=== PATIENT | female | born 1945 | race Caucasian/White ===

== ENCOUNTER 2019-10-22 06:00 | Outpatient (CLI) | payer MEDICARE, OTHER, SELFPAY ==
--- NOTE | 2019-10-25 07:07 | ONC FU_ITS ---
Dr. Joseph Patient Follow-Up Note Patient: Carmen Duran Unit #: [id number]: 1945 Dicatated By: Beau Joseph M.D.Date of Visit:Oct 22, 2019 Onc Med Follow-up/Prog Note Chief Complaint: Thrombocytopenia. 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 At that time she was having low-grade fever and polyarthralgia. Her platelet count dropped to as low as 5000. Bone marrow aspiration/biopsy on 03/13/2018 was reportedly normal. 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 She also had slightly elevated RA and HOLLY titers, but she later was seen by a lab tech and it was felt that she did not have inflammatory arthritis. Her thrombocytopenia responded well to steroid therapy, but attempts to taper her off steroid had been unsuccessful. She had been scheduled to start a course of treatment with rituximab, but the first attempt was canceled because her mother became ill and , and the second attempt was canceled because her platelet count at that time was not low enough to justify treatment. I had seen her initially on 11/27/2018. At that time she was taking 20 mg of prednisone daily. She had done some research on her own and she expressed interest in starting treatment with Nplate rather than rituximab. Her platelet count at that time was adequate at 109,000, and initially I had just monitored her blood counts weekly while she continued to taper her prednisone. During subsequent follow-up her platelet count initially increased a little, but on 01/09/2019 it had dropped precipitously to 17,000 compared to 121,000 on 01/01/2019. She reported significant fatigue with the low platelet count, but she had no active bleeding. At that point I attempted to have her start treatment with eltrombopag, but it was denied by her insurance. She then restarted prednisone at 20 mg daily. She had a good response, and the prednisone was subsequently tapered to 5 mg daily. Thus far she has maintained an adequate platelet count at that dosage. She is seen for a follow-up visit. She has numerous complaints. She says her energy is low, but she is still doing light work. Her ECOG score is 1. She has good appetite. She has not had fever. She says she has been having hot flashes off and on during the daytime and at night, and she has sweating with it to the point that she is wringing wet. She says she has had it forever, but recently has been getting worse. She says that at the same time her legs are freezing cold. She does not complain of shortness of breath or cough. She occasionally has sharp pain in her left chest in the area just below her breast. She has some postprandial nausea. She has heartburn and burping. She has had diarrhea, but her bowels lately have been okay. She has no complaints with bladder function. She has sharp pains in her hands and wrists which come and go. She does not complain of headache. She has orthostatic lightheadedness off and on. She has pain and tingling in her legs. She had been getting some benefit with gabapentin, but she had to stop taking it because of severe diarrhea. She tends to bruise easily, but that is not any worse, and she has no other bleeding manifestations. Medications: Acetaminophen 1 (325 mg) Tablet Oral PRN, [place] Dream Arthritis Cream Topical PRN, Devzzmp-Zkstnuulw-Mvhi-D3 1 Tablet Oral daily, EQL [place] 3 Fish Oil 1 (1000 mg) Capsule Oral daily, Levothyroxine Sodium 1 Tablet (of 100 mcg) Oral daily, Multivitamin Adults 1 Tablet Oral daily, Pain Relieving Cream Topical PRN, Potassium 1 (99 mg) Tablet Oral daily, predniSONE 1 Tablet (of 5 mg) Oral daily, Xanax 1 Tablet (of 0.25 mg) Oral at bedtime PRN Allergies: No Known Allergies. Review of Systems: Constitutional - Her energy is low, but she is doing light work. Her appetite is good and her weight is stable. She has not had fever. She has been having fequent hot flashes and sweating. ECOG score is 1, ENMT - She complains that her sinuses are drt. No mouth sores. No sore throat or difficulty swallowing, Hematologic/Lymphatic - She bruises easily, Respiratory - No shortness of breath. No cough or hemoptysis. She occasionally has sharp pain in the area just below the left breast, Cardiovascular - No angina pain. No palpitations, Gastrointestinal - She occasionally has nausea after eating. No vomiting. No heartburn or acid reflux. She complains that she has a lot of burping. She had diarrhea with the gabapentin, but her bowels are okay now. No blood in the stool or black stools, Genitourinary (F) - No dysuria or hematuria. She has episodes of urinary frequency. No urgency or incontinence, Musculoskeletal - She has sharp pains in her joints, Integumentary - No skin complications, Neurologic - No headaches. She has some orthostatic lightheadedness, usually when she first gets up. She has numbness and tingling in her legs and feet. She also complains that her legs feel cold, Psychiatric - No anxiety. She has some depression. She is sleeping better, but she still feels tired all the time. Vital Signs: Performed on Oct 22, 2019 14:19 Height - 63.00 in Weight - 179 lbs (HIGH) BSA - 1.84 sq.m BMI - 31.71 (HIGH) Temperature - 96.6 F (LOW) Pulse - 60 /min Respiration - 18 /min BP - 122/79 mm(hg) O2 Sat - 97 % Pain - 0 Physical Examination: Constitutional - She looks pretty good generally, Eyes - Sclerae nonicteric. Conjunctivae clear, ENMT - No lesions noted in the oral cavity, Hematologic/Lymphatic - No cervical, clavicular, or axillary adenopathy, Respiratory - Lungs are clear with good air movement bilaterally, Cardiovascular - Heart rhythm is regular. There is no murmur, gallop, or rub noted, Abdomen - Soft. Liver and spleen are not enlarged. There is no abdominal mass or ascites noted and there is no inguinal adenopathy, Extremities - No edema. She has good dorsalis pedis pulses bilaterally. There are a few scattered purpuric lesions on the arms and hands, Neurologic - No focal neurologic deficits noted. Lab/Imaging: Test performed on Oct 15, 2019 09:20 T4, Free 1.76 ng/dL TSH 0.97 uU/mL Glucose 93 mg/dL Protein, Total 6.5 g/dL Albumin, SPE 4.19 g/dL BUN 16 mg/dL Creatinine 1.04 mg/dL Cr Clearance (Est) 60.37 mL/min Sodium 141 mmol/L Potassium 4.3 mmol/L Chloride 102 mmol/L CO2 28 mmol/L Calcium 9.1 mg/dL Albumin 4.3 g/dL Bilirubin, Total 0.6 mg/dL Alkaline Phosphatase 75 IU/L AST (SGOT) 27 IU/L ALT (SGPT) 26 IU/L Sed Rate 12 mm/hr WBC 7.2 10^9/L RBC 4.78 10^12/L HGB 15.5 g/dL HCT 45.0 % MCV 94.1 fl MCH 32.4 pg MCHC 34.4 g/dL RDW 12.8 % Platelet Count 82 10^9/L MPV 12.8 fL Neutrophils (Gran) 5.50 10^9/L Lymphocytes 1.02 10^9/L Monocytes 0.47 10^9/L Eosinophils 0.14 10^9/L Basophils 0.02 10^9/L Manual Lymphocytes 14 % Manual Monocytes 7 % Manual Eosinophils 2 % Manual Basophils 0 % Inbxt-2-adftodfs 0.20 g/dL Ttvjt-9-ybbwffus 0.69 g/dL Beta Globulin 0.63 g/dL Gamma Globulin 0.80 g/dL SPE Interpretation essentially normal electrophoretic pattern. Impression: 1. Patient with autoimmune thrombocytopenia, initially diagnosed in March 2018. 2. Her disease had been responsive to steroid therapy, but she had failed attempts to taper steroid therapy. 3. She previously had a mild microcytic anemia, possibly due to iron deficiency. Her other medical illnesses include: 4. Osteoarthritis. 5. Hypothyroidism. 6. She has anxiety/depression. Following my initial visit with her on 11/27/2018 she had continued to gradually taper her prednisone. Her blood counts were monitored weekly and initially her platelet count remained adequate. However, on 01/09/2019 it precipitously dropped to 17,000. She had significant fatigue with the low platelet count, but no active bleeding. She restarted prednisone at 20 mg daily after her insurance denied her coverage for eltrombopag. She had a good response, and she subsequently was able to taper the prednisone dosage to 5 mg daily. During subsequent follow-up her platelet count has remained adequate on the low-dose of prednisone. During this time she has continued to have a variety of complaints. Among these are fatigue and significant neuropathy symptoms in the lower extremities. She also now reports having more frequent and more severe hot flashes and sweating. There has been some decline in her platelet count over the past month, but it is still adequate. Plan: She will continue her prednisone 5 mg daily. Her blood count will be rechecked monthly. If her platelet count continues to decline, the prednisone dosage will be increased. I will see her again in 3 months. Signed By: Beau Joseph M.D. <<Signature on File>>
== END 2019-10-22 06:01 | disposition home or self-care (01) ==
LOC: ONCMED 14:20
PROVIDERS: Family Provider Family Medicine; PCP Family Medicine; Visit Provider Internal Medicine Medical Oncology
DX: D69.3 Immune thrombocytopenic purpura (principal); M19.90 Unspecified osteoarthritis, unspecified site; E03.9 Hypothyroidism, unspecified; F41.8 Other specified anxiety disorders; Z79.52 Long term (current) use of systemic steroids; Z79.899 Other long term (current) drug therapy
CPT/HCPCS: 99214

== ENCOUNTER 2020-01-21 13:08 | Outpatient (CLI) | payer MEDICARE, OTHER, SELFPAY ==
--- NOTE | 2020-01-25 14:47 | ONC FU_ITS ---
Dr. Joseph Patient Follow-Up Note Patient: Carmen Duran Unit #: [id number]: 1945 Dicatated By: Beau Joseph M.D.Date of Visit:January 21, 2020 Onc Med Follow-up/Prog Note Chief Complaint: Thrombocytopenia. 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 At that time she was having low-grade fever and polyarthralgia. Her platelet count dropped to as low as 5000. Bone marrow aspiration/biopsy on 03/13/2018 was reportedly normal. 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 She also had slightly elevated RA and HOLLY titers, but she later was seen by a heavy equipment rental manager and it was felt that she did not have inflammatory arthritis. Her thrombocytopenia responded well to steroid therapy, but attempts to taper her off steroid had been unsuccessful. She had been scheduled to start a course of treatment with rituximab, but the first attempt was canceled because her mother became ill and , and the second attempt was canceled because her platelet count at that time was not low enough to justify treatment. I had seen her initially on 11/27/2018. At that time she was taking 20 mg of prednisone daily. She had done some research on her own and she expressed interest in starting treatment with Nplate rather than rituximab. Her platelet count at that time was adequate at 109,000, and initially I had just monitored her blood counts weekly while she continued to taper her prednisone. During subsequent follow-up her platelet count initially increased a little, but on 01/09/2019 it had dropped precipitously to 17,000 compared to 121,000 on 01/01/2019. She reported significant fatigue with the low platelet count, but she had no active bleeding. At that point I attempted to have her start treatment with eltrombopag, but it was denied by her insurance. She then restarted prednisone at 20 mg daily. She had a good response, and the prednisone was subsequently tapered to 5 mg daily. As of her follow-up visit in October 2019 she had maintained an adequate platelet count at that dosage. She is seen for a follow-up visit. Subsequent to her visit in October she had reduced her prednisone dosage to 1 mg daily, mainly because she had been gaining weight. Since then she has been also on a keto diet, and her weight has dropped from 192 to 170 pounds. However, during that time her platelet count had declined significantly, and she is now back on 5 mg daily. She says her energy is better than it was, but she still has somewhat limited activity tolerance. ECOG score is 1. She has not had fever. She does report having some hot flashes and sweating. Her neuropathy is still awful, particularly in the nighttime. She is adjusting her carbamazepine dosage to try and help with that. She reports having some little sores in her mouth, but she has had no abnormal bruising or bleeding. She continues to have joint pain. She also reports having a bit of headache every morning. She has some dizziness and some nausea, which she thinks is medication related. She says her depression has been pretty bad. Medications: Acetaminophen 1 (325 mg) Tablet Oral PRN, [place] Dream Arthritis Cream Topical PRN, Rfgmdih-Xusouyejf-Vkad-D3 1 Tablet Oral daily, EQL [place] 3 Fish Oil 1 (1000 mg) Capsule Oral daily, Levothyroxine Sodium 1 Tablet (of 100 mcg) Oral daily, Multivitamin Adults 1 Tablet Oral daily, Pain Relieving Cream Topical PRN, Potassium 1 (99 mg) Tablet Oral daily, predniSONE 1 Tablet (of 5 mg) Oral daily, Xanax 1 Tablet (of 0.25 mg) Oral at bedtime PRN Allergies: No Known Allergies. Review of Systems: Constitutional - She general feels okay. Her energy is fair. She has fairly normal activity. Her appetite is okay and weight is down 12 pounds. No fever or chills. She is having hot flashes with sweating. ECOG score is 1, ENMT - No sinus congestion/drainage. She has started gets mouth sores when eating acidic foods. No sore throat or difficulty swallowing, Hematologic/Lymphatic - No abnormal bruising or bleeding, Respiratory - No shortness of breath. No cough. No pleuritic pain or hemoptysis, Cardiovascular - No angina pain. No palpitations, Gastrointestinal - No nausea or vomiting. No heartburn or acid reflux. No diarrhea or constipation. No blood in the stool or black stools, Genitourinary (F) - No dysuria or hematuria. No urinary frequency. No urgency or incontinence, Musculoskeletal - She has joint pain, Integumentary - No skin complications, Neurologic - She has headaches nearly every morning. No dizziness. She continues having significant neuropathy in her legs and feet, Psychiatric - She has anxiety and depression. No insomnia. Vital Signs: Performed on January 21, 2020 13:08 Height - 63.00 in Weight - 172 lbs (LOW) BSA - 1.81 sq.m BMI - 30.47 (HIGH) Temperature - 97.1 F (LOW) Pulse - 67 /min Respiration - 16 /min BP - 110/60 mm(hg) O2 Sat - 97 % Pain - 5 Physical Examination: Constitutional - She looks pretty good generally, Eyes - Sclerae nonicteric. Conjunctivae clear, ENMT - No lesions noted in the oral cavity. TMs appear unremarkable, Hematologic/Lymphatic - No cervical, clavicular, or axillary adenopathy, Respiratory - Lungs are clear with good air movement bilaterally, Cardiovascular - Heart rhythm is regular. There is no murmur, gallop, or rub noted, Abdomen - Soft. Liver and spleen are not enlarged. There is no abdominal mass or ascites noted and there is no inguinal adenopathy, Extremities - No edema. Pedal pulses are palpable bilaterally, Integumentary - There are no petechiae noted, Neurologic - No focal neurologic deficits noted. Lab/Imaging: Test performed on January 13, 2020 10:20 WBC 5.3 10^9/L RBC 4.17 10^12/L HGB 13.9 g/dL HCT 41.2 % MCV 98.8 fl MCH 33.3 pg MCHC 33.7 g/dL RDW 13.6 % Platelet Count 55 10^9/L MPV 12.5 fL Neutrophils (Gran) 3.84 10^9/L Lymphocytes 0.53 10^9/L Monocytes 0.583 10^9/L Eosinophils 0.265 10^9/L Basophils 0.053 10^9/L Impression: 1. Patient with autoimmune thrombocytopenia, initially diagnosed in March 2018. 2. Her disease had been responsive to steroid therapy, but she had failed attempts to taper steroid therapy. 3. She previously had a mild microcytic anemia, possibly due to iron deficiency. Her other medical illnesses include: 4. Osteoarthritis. 5. Hypothyroidism. 6. She has anxiety/depression. Following my initial visit with her on 11/27/2018 she had continued to gradually taper her prednisone. Her blood counts were monitored weekly and initially her platelet count remained adequate. However, on 01/09/2019 it precipitously dropped to 17,000. She had significant fatigue with the low platelet count, but no active bleeding. She restarted prednisone at 20 mg daily after her insurance denied her coverage for eltrombopag. She had a good response, and she subsequently was able to taper the prednisone dosage to 5 mg daily. During subsequent follow-up her platelet count has remained adequate on the low-dose of prednisone. During this time she has continued to have a variety of complaints. The most significant have been fatigue and neuropathy symptoms in the lower extremities. As of her follow-up visit in October 2019 her platelet count had remained adequate on prednisone at the 5 mg dosage. Subsequent to that visit she had decreased her prednisone dosage to 1 mg daily, mainly because of weight gain. With the keto diet and with the lower dose of prednisone, she was able to lose weight. However, there has been a significant decline in her platelet count, now to 55,000. She does not appear to be symptomatic with it, but she has now increased the prednisone dosage back up to 5 mg daily. Plan: She will continue prednisone at 5 mg daily. Her blood count will be rechecked monthly. I will see her again in 3 months, or sooner as needed. Signed By: Beau Joseph M.D. <<Signature on File>>
== END 2020-01-21 13:09 | disposition home or self-care (01) ==
LOC: ONCMED 13:08
PROVIDERS: PCP Family Medicine; Visit Provider Internal Medicine Medical Oncology
DX: D69.3 Immune thrombocytopenic purpura (principal); M19.90 Unspecified osteoarthritis, unspecified site; E03.9 Hypothyroidism, unspecified; F41.8 Other specified anxiety disorders; G57.93 Unspecified mononeuropathy of bilateral lower limbs; R53.83 Other fatigue; Z79.52 Long term (current) use of systemic steroids
CPT/HCPCS: 99214

== ENCOUNTER 2020-04-21 10:32 | Outpatient (CLI) | payer MEDICARE, OTHER, SELFPAY ==
--- NOTE | 2020-04-27 16:11 | ONC FU_ITS ---
Dr. Joseph Patient Follow-Up Note Patient: Carmen Duran Unit #: [id number]: 1945 Dicatated By: Beau Joseph M.D.Date of Visit:Apr 21, 2020 Onc Med Follow-up/Prog Note Chief Complaint: Thrombocytopenia. 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 At that time she was having low-grade fever and polyarthralgia. Her platelet count dropped to as low as 5000. Bone marrow aspiration/biopsy on 03/13/2018 was reportedly normal. 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 She also had slightly elevated RA and HOLLY titers, but she later was seen by a treasury specialist and it was felt that she did not have inflammatory arthritis. Her thrombocytopenia responded well to steroid therapy, but attempts to taper her off steroid had been unsuccessful. She had been scheduled to start a course of treatment with rituximab, but the first attempt was canceled because her mother became ill and , and the second attempt was canceled because her platelet count at that time was not low enough to justify treatment. I had seen her initially on 11/27/2018. At that time she was taking 20 mg of prednisone daily. She had done some research on her own and she expressed interest in starting treatment with Nplate rather than rituximab. Her platelet count at that time was adequate at 109,000, and initially I had just monitored her blood counts weekly while she continued to taper her prednisone. During subsequent follow-up her platelet count initially increased a little, but on 01/09/2019 it had dropped precipitously to 17,000 compared to 121,000 on 01/01/2019. She reported significant fatigue with the low platelet count, but she had no active bleeding. At that point I attempted to have her start treatment with eltrombopag, but it was denied by her insurance. She then restarted prednisone at 20 mg daily. She had a good response, and the prednisone was subsequently tapered to 5 mg daily. As of her follow-up visit in October 2019 she had maintained an adequate platelet count at that dosage. However, subsequent to her visit in October she had reduced her prednisone dosage to 1 mg daily, mainly because she had been gaining weight. She had also started on a keto diet, and her weight dropped from 192 to 170 pounds. During that time her platelet count had declined significantly, and she then increased the prednisone dosage back to 5 mg daily. As of February 2020 the platelet count was back up to 160,000, and she continued the prednisone at 5 mg daily. She is seen for a scheduled visit. She has remained on prednisone 5 mg daily. She also has continued on her keto diet, and she has had further weight loss. Her energy is somewhat variable, but she is doing light work. ECOG score is 1. She has not had fever. She has some sweating, but she has says it is not so bad now. She does report having little bumps in her mouth and she has sore throat, which comes and goes. She does not complain of shortness of breath or cough. She sometimes has pain in the area of her lower left rib cage/left upper quadrant. She has no other GI or complaints. She reports having cysts on her left wrist and left elbow. She has no significant joint or bone pain. She occasionally has headache at night, and she sometimes has dizziness. She feels that her neuropathy has improved with the keto diet. Medications: Acetaminophen 1 (325 mg) Tablet Oral PRN, French Dream Arthritis Cream Topical PRN, Llumwwk-Zkeuvgxur-Memj-D3 1 Tablet Oral daily, EQL [place] 3 Fish Oil 1 (1000 mg) Capsule Oral daily, Levothyroxine Sodium 1 Tablet (of 100 mcg) Oral daily, Multivitamin Adults 1 Tablet Oral daily, Pain Relieving Cream Topical PRN, predniSONE 1 Tablet (of 5 mg) Oral daily, Xanax 1 Tablet (of 0.25 mg) Oral at bedtime PRN Allergies: No Known Allergies. Review of Systems: Constitutional - She has been feeling much better since stopping her carbamazepine. Her energy seems to come and go. She is able to do light to moderate work. Her appetite is fair. Her weight is down 16 pounds intentionally from last visit. She has been on a keto diet. No fevers. She has night sweats, but they are not so bad now. ECOG score is 1, ENMT - No sinus congestion/drainage. She has a few mouth sores. No sore throat or difficulty swallowing, Hematologic/Lymphatic - She has no abnormal bruising or bleeing, Respiratory - No shortness of breath. No cough. No pleuritic pain or hemoptysis, Cardiovascular - No angina pain. No palpitations, Gastrointestinal - No nausea or vomiting. No heartburn or acid reflux. No diarrhea or constipation. No blood in the stool or black stools, Genitourinary (F) - No dysuria or hematuria. No urinary frequency. No urgency or incontinence, Musculoskeletal - She has had intermittent pain near her left rib area. She says it feels like heartburn at times. She has some pain in the left wrist and left elbow, Integumentary - No skin complications, Neurologic - She has occasional headaches at night. She has some dizziness. She continues having significant neuropathy in her legs and feet, but it seems to be better. No other focal neurologic symptoms, Psychiatric - She has intermittent anxiety. No depression. She has occasional insomnia. Vital Signs: Performed on Apr 21, 2020 10:31 Height - 63.00 in Weight - 156 lbs (LOW) BSA - 1.74 sq.m BMI - 27.63 Temperature - 98.6 F Pulse - 61 /min Respiration - 17 /min BP - 110/70 mm(hg) O2 Sat - 96 % Pain - 0 Physical Examination: Constitutional - She looks pretty good generally, Eyes - Sclerae nonicteric. Conjunctivae clear, ENMT - No lesions noted in the oral cavity, Hematologic/Lymphatic - No cervical, clavicular, or axillary adenopathy, Respiratory - Lungs are clear with good air movement bilaterally, Cardiovascular - Heart rhythm is regular. There is no murmur, gallop, or rub noted, Abdomen - Soft. Liver and spleen are not enlarged. There is no abdominal mass or ascites noted and there is no inguinal adenopathy, Extremities - No edema. There appears to be some mild soft tissue swelling in the left antecubital fossa, Neurologic - No focal neurologic deficits noted. Lab/Imaging: Test performed on Apr 15, 2020 13:22 Cholesterol, Total 292 mg/dL Glucose 102 mg/dL Albumin, SPE 4.19 g/dL BUN 24 mg/dL HDL Cholesterol 107 mg/dL Creatinine 0.98 mg/dL LDL Cholesterol 167 mg/dL Cr Clearance (Est) 64.07 mL/min VLDL Cholesterol 185 mg/dL Triglycerides 88 mg/dL Sodium 139 mmol/L Potassium 4.6 mmol/L Chloride 103 mmol/L CO2 24 mmol/L Calcium 9.2 mg/dL Protein, Total 6.3 g/dL Albumin 4.3 g/dL Bilirubin, Total 0.6 mg/dL Alkaline Phosphatase 67 IU/L AST (SGOT) 26 IU/L ALT (SGPT) 20 IU/L WBC 7.4 10^9/L RBC 4.20 10^12/L HGB 14.3 g/dL HCT 42.5 % MCV 101.4 fl MCH 34.1 pg MCHC 33.6 g/dL RDW 12.8 % Platelet Count 166 10^9/L MPV 11.2 fL Neutrophils (Gran) 5.99 10^9/L Lymphocytes 0.82 10^9/L Monocytes 0.42 10^9/L Eosinophils 0.09 10^9/L Basophils 0.03 10^9/L Manual Lymphocytes 11 % Manual Monocytes 6 % Manual Eosinophils 1 % Manual Basophils 0 % Yvinl-9-hbgnvemk 0.20 g/dL Idtpm-3-zmayemzu 0.69 g/dL Beta Globulin 0.63 g/dL Gamma Globulin 0.80 g/dL Impression: 1. Patient with autoimmune thrombocytopenia, initially diagnosed in March 2018. 2. Her disease had been responsive to steroid therapy, but she had failed attempts to taper steroid therapy. 3. She previously had a mild microcytic anemia, possibly due to iron deficiency. Her other medical illnesses include: 4. Osteoarthritis. 5. Hypothyroidism. 6. She has anxiety/depression. Following my initial visit with her on 11/27/2018 she had continued to gradually taper her prednisone. Her blood counts were monitored weekly and initially her platelet count remained adequate. However, on 01/09/2019 it precipitously dropped to 17,000. She had significant fatigue with the low platelet count, but no active bleeding. She restarted prednisone at 20 mg daily after her insurance denied her coverage for eltrombopag. She had a good response, and she subsequently was able to taper the prednisone dosage to 5 mg daily. During subsequent follow-up her platelet count has remained adequate on the low-dose of prednisone. During this time she has continued to have a variety of complaints. The most significant have been fatigue and neuropathy symptoms in the lower extremities. As of her follow-up visit in October 2019 her platelet count had remained adequate on prednisone at the 5 mg dosage. Subsequent to that visit she had decreased her prednisone dosage to 1 mg daily, mainly because of weight gain. She had subsequently increase the prednisone back up to 5 mg daily. She also then started on a keto diet. She has since then been feeling better generally. She has had significant weight loss. Her platelet count has come up to normal range and stabilized. Plan: She will continue prednisone at 5 mg daily. She will be scheduled for repeat blood count in 6 weeks and for a follow-up visit in 3 months. In the meantime, due to her long-term prednisone therapy, she will be scheduled for a DEXA scan. Signed By: Beau Joseph M.D. <<Signature on File>>
== END 2020-04-21 10:33 | disposition home or self-care (01) ==
LOC: ONCMED 10:32
PROVIDERS: PCP Family Medicine; Visit Provider Internal Medicine Medical Oncology
DX: D69.3 Immune thrombocytopenic purpura (principal); M19.90 Unspecified osteoarthritis, unspecified site; E03.9 Hypothyroidism, unspecified; F41.8 Other specified anxiety disorders; Z79.52 Long term (current) use of systemic steroids
CPT/HCPCS: 99214

== ENCOUNTER 2020-07-21 10:19 | Outpatient (CLI) | payer MEDICARE, OTHER, SELFPAY ==
--- NOTE | 2020-07-24 07:00 | ONC FU_ITS ---
Dr. Joseph Patient Follow-Up Note Patient: Carmen Duran Unit #: [id number]: 1945 Dicatated By: Beau Joseph M.D.Date of Visit:Jul 21, 2020 Onc Med Follow-up/Prog Note Chief Complaint: Thrombocytopenia. 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 At that time she was having low-grade fever and polyarthralgia. Her platelet count dropped to as low as 5000. Bone marrow aspiration/biopsy on 03/13/2018 was reportedly normal. 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 She also had slightly elevated RA and HOLLY titers, but she later was seen by a oil gas and pipe tester and it was felt that she did not have inflammatory arthritis. Her thrombocytopenia responded well to steroid therapy, but attempts to taper her off steroid had been unsuccessful. She had been scheduled to start a course of treatment with rituximab, but the first attempt was canceled because her mother became ill and , and the second attempt was canceled because her platelet count at that time was not low enough to justify treatment. I had seen her initially on 11/27/2018. At that time she was taking 20 mg of prednisone daily. She had done some research on her own and she expressed interest in starting treatment with Nplate rather than rituximab. Her platelet count at that time was adequate at 109,000, and initially I had just monitored her blood counts weekly while she continued to taper her prednisone. During subsequent follow-up her platelet count initially increased a little, but on 01/09/2019 it had dropped precipitously to 17,000 compared to 121,000 on 01/01/2019. She reported significant fatigue with the low platelet count, but she had no active bleeding. At that point I attempted to have her start treatment with eltrombopag, but it was denied by her insurance. She then restarted prednisone at 20 mg daily. She had a good response, and the prednisone was subsequently tapered to 5 mg daily. As of her follow-up visit in October 2019 she had maintained an adequate platelet count at that dosage. However, subsequent to her visit in October she had reduced her prednisone dosage to 1 mg daily, mainly because she had been gaining weight. She had also started on a keto diet, and her weight dropped from 192 to 170 pounds. During that time her platelet count had declined significantly, and she then increased the prednisone dosage back to 5 mg daily. As of February 2020 the platelet count was back up to 160,000, and she continued the prednisone at 5 mg daily. She is seen for a scheduled visit. She has been feeling pretty good generally. Among other things, she has is feeling a lot more positive about things. Overall, she has felt much better since she went on the keto diet. Her weight recently has been stable. She has good energy and she has normal activity. She has not had fever. She says she has hot flashes every day, and she also has night sweating. She has no shortness of breath, cough, or chest pain. She has no GI or complaints. She does complain that her joints are achy, particularly the hips, and the left worse than the right. Her neuropathy is about the same. She is having only mild bruising now. Medications: Acetaminophen 1 (325 mg) Tablet Oral PRN, Belgian Dream Arthritis Cream Topical PRN, Nuiqgxe-Rygkrykhk-Lhnt-D3 1 Tablet Oral daily, EQL [place] 3 Fish Oil 1 (1000 mg) Capsule Oral daily, Levothyroxine Sodium 1 Tablet (of 100 mcg) Oral daily, Multivitamin Adults 1 Tablet Oral daily, Pain Relieving Cream Topical PRN, predniSONE 1 Tablet (of 5 mg) Oral daily, Xanax 1 Tablet (of 0.25 mg) Oral at bedtime PRN Allergies: No Known Allergies. Review of Systems: Constitutional - She has been feeling better generally. She has good energy and activity tolerance. Her appetite is good. She is still on the keto diet. She has not had fever. She does have hot flashes every day and she also gets hot with sweating at night. ECOG score is 0, ENMT - She complains of having a drippy nose. No mouth sores. No sore throat or difficulty swallowing, Hematologic/Lymphatic - She has some minor bruising, Respiratory - No shortness of breath. No cough. No pleuritic pain or hemoptysis, Cardiovascular - No angina pain. No palpitations, Gastrointestinal - No nausea or vomiting. No heartburn or acid reflux. No diarrhea or constipation. No blood in the stool or black stools, Genitourinary (F) - No dysuria or hematuria. No urinary frequency. No urgency or incontinence, Musculoskeletal - She has joint pain, especially in the hips, and more on the left than the right, Integumentary - No skin rash, Neurologic - No headache. She sometimes has dizziness. Her neuropathy is about the same, Psychiatric - She is not having as much stress now. She still sometimes has difficulty sleeping. Vital Signs: Performed on Jul 21, 2020 10:40 Height - 63.00 in Weight - 155.6 lbs (LOW) BSA - 1.74 sq.m BMI - 27.56 Temperature - 97.6 F (LOW) Pulse - 59 /min (LOW) Respiration - 16 /min BP - 116/60 mm(hg) O2 Sat - 99 % Pain - 3 Physical Examination: Constitutional - She looks good generally, Eyes - Sclerae nonicteric. Conjunctivae clear, ENMT - No lesions noted in the oral cavity, Hematologic/Lymphatic - No cervical, clavicular, or axillary adenopathy, Respiratory - Lungs are clear with good air movement bilaterally, Cardiovascular - Heart rhythm is regular. There is no murmur, gallop, or rub noted, Abdomen - Soft. Liver and spleen are not enlarged. There is no abdominal mass or ascites noted and there is no inguinal adenopathy, Extremities - No edema. She has small purpuric lesions on the forearms and hands, Neurologic - No focal neurologic deficits noted. Lab/Imaging: CBC shows hemoglobin 14.8 g, white blood cell count 6200, and platelet count 202,000. Impression: 1. Patient with autoimmune thrombocytopenia, initially diagnosed in March 2018. 2. Her disease had been responsive to steroid therapy, but she had failed attempts to taper steroid therapy. 3. She previously had a mild microcytic anemia, possibly due to iron deficiency. Her other medical illnesses include: 4. Osteoarthritis. 5. Hypothyroidism. 6. She has anxiety/depression. Following my initial visit with her on 11/27/2018 she had continued to gradually taper her prednisone. Her blood counts were monitored weekly and initially her platelet count remained adequate. However, on 01/09/2019 it precipitously dropped to 17,000. She had significant fatigue with the low platelet count, but no active bleeding. She restarted prednisone at 20 mg daily after her insurance denied her coverage for eltrombopag. She had a good response, and she subsequently was able to taper the prednisone dosage to 5 mg daily. During subsequent follow-up her platelet count has remained adequate on the low-dose of prednisone. During this time she has continued to have a variety of complaints. The most significant have been fatigue and neuropathy symptoms in the lower extremities. As of her follow-up visit in October 2019 her platelet count had remained adequate on prednisone at the 5 mg dosage. She had then had decreased her prednisone dosage to 1 mg daily, mainly because of weight gain. However, the prednisone was subsequently increased back up to 5 mg daily due to a significant decrease in the platelet count. At that point she had also started on a keto diet. She has since then been feeling better generally, and her platelet count has stabilized in normal range. Plan: She will continue prednisone at 5 mg daily. She will be scheduled for a follow-up visit in 3 months. Signed By: Beau Joseph M.D. <<Signature on File>>
== END 2020-07-21 10:20 | disposition home or self-care (01) ==
LOC: ONCMED 10:19
PROVIDERS: PCP Family Medicine; Visit Provider Internal Medicine Medical Oncology
DX: D69.3 Immune thrombocytopenic purpura (principal); M19.90 Unspecified osteoarthritis, unspecified site; E03.9 Hypothyroidism, unspecified; F41.8 Other specified anxiety disorders; Z79.52 Long term (current) use of systemic steroids
CPT/HCPCS: 99214

== ENCOUNTER 2020-11-03 14:46 | Outpatient (CLI) | payer MEDICARE, OTHER, SELFPAY | END 2020-11-03 14:47 | disposition home or self-care (01) | LOC: SPT 14:47 | PROVIDERS: PCP Family Medicine; Visit Provider Orthopaedic Surgery | DX: Z46.89 Encounter for fitting and adjustment of other specified devices (principal); S52.591D Other fractures of lower end of right radius, subsequent encounter for closed fracture with routine healing; X58.XXXD Exposure to other specified factors, subsequent encounter | CPT/HCPCS: 97760; L3982 ==

== ENCOUNTER → 2020-11-11 08:32 | Outpatient (BNVA) | payer MEDICARE, OTHER, SELFPAY | PROVIDERS: PCP Family Medicine; Visit Provider Orthopaedic Surgery | DX: S52.501A Unspecified fracture of the lower end of right radius, initial encounter for closed fracture (principal); X58.XXXA Exposure to other specified factors, initial encounter | CPT/HCPCS: 73110 ==

== ENCOUNTER → 2020-11-25 14:17 | Outpatient (BNVA) | payer MEDICARE, OTHER, SELFPAY | PROVIDERS: PCP Family Medicine; Visit Provider Orthopaedic Surgery | DX: S52.501A Unspecified fracture of the lower end of right radius, initial encounter for closed fracture (principal); M25.521 Pain in right elbow; X58.XXXA Exposure to other specified factors, initial encounter | CPT/HCPCS: 73080; 73110 ==

== ENCOUNTER → 2020-12-22 08:55 | Outpatient (BNVA) | payer MEDICARE, OTHER, SELFPAY | PROVIDERS: PCP Family Medicine; Visit Provider Orthopaedic Surgery | DX: S52.501A Unspecified fracture of the lower end of right radius, initial encounter for closed fracture (principal); X58.XXXA Exposure to other specified factors, initial encounter | CPT/HCPCS: 73110 ==

== ENCOUNTER → 2021-07-12 09:39 | Outpatient (BNVA) | payer MEDICARE, OTHER, SELFPAY | PROVIDERS: PCP Family Medicine; Visit Provider Internal Medicine | DX: E03.9 Hypothyroidism, unspecified (principal); G62.9 Polyneuropathy, unspecified; E07.9 Disorder of thyroid, unspecified; D69.3 Immune thrombocytopenic purpura | CPT/HCPCS: 99204 ==

== ENCOUNTER 2021-10-30 17:04 | Inpatient (IN) | payer MEDICARE, OTHER, SELFPAY ==
[2021-10-30] VITALS (8 sets, daily range): BP systolic 120–168; BP diastolic 75–110; PULSE 77–93; RESP 16–22; TEMP 36.7–36.8; O2SAT 95–99; BMI 29.2; BMI 29.0
--- NOTE | 2021-10-30 17:06 | XRR_ITS ---
PROCEDURE INFORMATION: Exam: XR Left Hip Exam date and time: 10/30/2021 5:06 PM Age: 76 years old Clinical indication: Pain and injury or trauma; Fall; Blunt trauma (contusions or hematomas); Hip pain; Left hip; Additional info: Pain/fall TECHNIQUE: Imaging protocol: XR Left hip. Views: 2 or 3 views hip with pelvis when performed. COMPARISON: No relevant prior studies available. FINDINGS: Bones/joints: Subcapital impacted displaced hip fracture. Soft tissues: Unremarkable. XR/XR hip LT 2-3V wo/w pel* [id number] IMPRESSION: Subcapital impacted displaced hip fracture.
--- NOTE | 2021-10-30 17:06 | W.ED.FALL ---
HPI - Fall General: Chief Complaint: Fall Stated Complaint: LEFT HIP PAIN S/P FALL Time Seen by Provider: 10/30/21 17:05 Source: patient Mode of arrival: EMS Limitations: no limitations History of Present Illness: 76-year-old female slipped on the ice and fell on her left side is unable to move her left hip. Did not strike her head did not lose consciousness. She has no other injuries. She does states she has a history of ITP. She also has some back issues she recently had an MRI at an outside facility believe it was [facility]. She denies any new or worsening back pain. MD complaint: fall Onset (ago): minute(s) Fall from: standing Place fall occurred: home Loss of consciousness: None Prolonged down time: no Symptoms prior to fall: none Context: tripped/slipped Location of injury - extremities: Left: thigh (Hip) Associated symptoms-after fall: Denies abdominal pain, chest pain, confusion, difficulty walking, headache(s), hematuria, lightheadedness, neck pain, numbness, short of breath, vertigo or weakness Review of Systems Const: Denies: fever(s), chills, body aches, change in appetite, fatigue or malaise ENMT: Denies: throat pain, ear or mastoid pain, nasal discharge or nasal congestion Card: Denies: chest pain or lightheadedness Resp: Denies: dyspnea, productive cough or non-productive cough GI: Denies: abdominal pain : Denies: hematuria Musc: Reports: extremity pain (Left hip); Denies: neck pain Skin/Breast: Denies: rash or pruritus Neuro: Denies: headache(s), difficulty walking, vertigo or confusion PFSH ED PFSH: Medical History Cataract Chronic ITP (idiopathic thrombocytopenia) Hypothyroidism Neuropathy Skin cancer Surgical History No pertinent past surgical history Family History Father No problems noted. Mother Alzheimer's dementia Social History Smoking and tobacco status: never smoked Second hand smoke exposure: No Smoking risk assessment/counseling performed?: No Alcohol intake: current Alcohol intake frequency: holidays/special occasions only Desire information about alcohol rehabilitation?: No Counseling given: No Desire information about substance/drug rehabilitation?: No Counseling given: No Adopted: No Caregiver/support person: No Lives independently: Yes Household members: spouse and family Housing: House Marital status: Highest education level completed: Some College, No Degree service: No Current occupational status: retired History of recent travel: No Sexually active: No Current gender identity: Female Agree to transfusion: Yes Physical Exam Const: COMMON NORMALS: no acute distress GENERAL APPEARANCE: cooperative and comfortable ORIENTATION/CONSCIOUSNESS: Yes awake, Yes oriented to person, Yes oriented to place and Yes oriented to time HENMT: COMMON NORMALS: normocephalic, atraumatic and hearing grossly normal bilaterally HEAD & SCALP: normocephalic and atraumatic Neck/C-Spine: COMMON NORMALS: no JVD Resp: COMMON NORMALS: normal respiratory effort, No retractions, No use of accessory muscles and clear to auscultation bilaterally AUSCULTATION: clear to auscultation bilaterally Cardio: COMMON NORMALS: no JVD, regular rate, regular rhythm and No murmurs present (Cardio) RATE: regular rate RHYTHM: regular rhythm GI: COMMON NORMALS: Soft to palpation and No hepatosplenomegaly present AUSCULTATION: Yes normoactive bowel sounds PALPATION: Yes Soft to palpation, No Tenderness to palpation present (GI), No Guarding due to palpation present (GI) and Yes No hepatosplenomegaly present Extremity: OTHER: Mild external rotation of the left hip. Pulses normal neurovascularly intact Neuro: SENSORIUM/ORIENTATION: Yes oriented to person, Yes oriented to place and Yes oriented to time Skin: COMMON NORMALS: no rashes or lesions noted GENERAL SKIN EXAM: no rashes or lesions noted Course Vital Signs: Vital signs: Vital Signs Temperature 98.3 F 10/30/21 17:09 Pulse Rate 93 10/30/21 17:09 Respiratory Rate 20 H 10/30/21 17:22 Blood Pressure 165/110 10/30/21 17:09 Pulse Oximetry 96 10/30/21 17:09 MDM - Fall Medical Decision Making Left subcapital hip fracture minimal displacement. Discussed with hospitalist they will admit consult Ortho preoperative labs done. Medical Records I reviewed the patient's medical records. Lab Data I reviewed the patient's lab results. : 10/30/21 18:05 10/30/21 18:05 Discharge Plan Discharge Patient Disposition: Admitted As Inpatient Clinical Impression: Closed subcapital fracture of left femur, Hypothyroidism, Chronic ITP (idiopathic thrombocytopenia) Condition: Stable Prescriptions: No Action prednisone 5 mg tablet 5 mg PO DAILY 0RF levothyroxine [Euthyrox] 100 mcg tablet 100 mcg PO DAILY 0RF alprazolam 0.5 mg tablet 0.5 mg PO DAILY PRN (Reason: Anxiety) 0RF (DME) Fast Form cock up splint See Rx Instructions .ROUTE .MEDSUPPLY Qty: 1 0RF Rx Instructions: As directed acetaminophen 325 mg capsule 325 mg PO QID PRN (Reason: Pain) 0RF amitriptyline 25 mg tablet 25 mg PO DAILY PRN (Reason: Anxiety) 0RF cyclobenzaprine 5 mg tablet 5 mg PO BID PRN (Reason: Muscle Pain) 0RF Referrals: Harley Sheppard [Primary Care Provider] - Coding Level of Care Code ED Computer Technology Instructor for Chg Fwd Exam Detailed
[2021-10-30] MEDS: morphine 4 mg/mL SDV 1 mL 6 MG IVP (17:22)
[2021-10-30] MEDS: ondansetron 2 mg/ML SDV 2 mL 4 MG IVP (17:29)
--- NOTE | 2021-10-30 17:41 | ECG_ITS ---
[facility] Test Date: 2021-10-30 Pat Name: Carmen Duran Department: Room: 261 Gender: Female Placement Coordinator: : 1945 Requested By: Adam Rojo Order Number: [id number] [place] MD: Clau Justin M.D. Measurements Intervals [place] Rate: 79 P: 50 ID: [id number] QRS: -5 QRSD: 75 T: 47 QT: 354 QTc: 407 Interpretive Statements SINUS RHYTHM LOW QRS VOLTAGE IN PRECORDIAL LEADS [QRS DEFLECTION < 1.0 mV IN CHEST LEADS] POSSIBLE ANTERIOR MYOCARDIAL INFARCTION , PROBABLY OLD [30 ms Q WAVE IN V3/V4, OR R < 0.2 mV IN V4] No previous ECG available for comparison Electronically Signed On 10-31-2021 21:36:48 COMPOSITE WORKER by Clau Justin M.D. [email or web address]
--- NOTE | 2021-10-30 17:42 | XRR_ITS ---
PROCEDURE INFORMATION: Exam: XR Chest Exam date and time: 10/30/2021 5:42 PM Age: 76 years old Clinical indication: Injury or trauma; Fall; Blunt trauma (contusions or hematomas); Additional info: Pre op TECHNIQUE: Imaging protocol: XR of the chest. Views: 1 view. COMPARISON: No relevant prior studies available. FINDINGS: Lungs: Unremarkable. No consolidation. Pleural spaces: Unremarkable. No pleural effusion. No pneumothorax. Heart/Mediastinum: Unremarkable. No cardiomegaly. Bones/joints: Unremarkable. XR/XR chest 1V portable [id number] IMPRESSION: No acute findings.
[2021-10-30] MEDS: LORazepam 2 mg/mL INJ 1 mL 1 MG IVP (18:24)
[2021-10-30] MEDS: morphine 4 mg/mL SDV 1 mL IVP (18:26)
[2021-10-30 18:34] LABS: Albumin Level 4.3 g/dL (3.5-5.2); Alkaline Phosphatase 92 IU/L (35-105); Chloride 105 mmol/L (98-107); Potassium 4.2 mmol/L (3.5-5.1); Sodium 136 mmol/L (136-145)
[2021-10-30 18:40] LABS: Alanine Aminotransferase 22 U/L (0-33); Blood Urea Nitrogen 23 mg/dL (8-23); Calcium 9.2 mg/dL (8.5-10.5); Carbon Dioxide 20 mmol/L (22-29); Globulin 2.9 g/dL (1.3-4.6); Glucose 134 mg/dL (65-115); Total Bilirubin 0.6 mg/dL (0.15-1.2); Total Protein 7.2 g/dL (6.6-8.7)
[2021-10-30 18:41] LABS: Anion Gap 15.2 (5-19); Creatinine Clr Calc Pharmacy 47.0985; Osmolality Calculated 288 mOsm/kg (285-295)
[2021-10-30 18:42] LABS: Aspartate Amino Transferase 30 U/L (0-32)
--- NOTE | 2021-10-30 19:15 | PM.HP ---
Providers/Chief Complaint Admitting Physician: Mattie Ivy MD Primary Care Provider: Harley Sheppard Chief Complaint: LEFT HIP PAIN S/P FALL History of Present Illness Carmen Duran is a 76 year old female carries history of myoclonus/restless leg syndrome was diagnosed 3 months ago, presented to the hospital after sustaining a fall on the ice. In the ER she was diagnosed with hip fracture. Patient is stating that around 3:30 PM she felt on the ice and sustained a pretty bad fall which resulted in excruciating pain. She carries history of chronic kidney disease stage III, ITP. Hospital service requested with the patient, Abnormal UA however it is contaminant Patient was experiencing restless legs at the time of my evaluation and excruciating pain, will give her 1 dose of Dilaudid [address] Gutierrez to see the patient No previous history of coronary disease, ID or stroke. Patient is pretty active for her age. She will not need any preoperative cardiac work-up. I will request coagulation profile and EKG She is vaccinated for COVID-19 status post 2 doses Review of Systems Const: Denies: chills Eyes: Denies: change in vision Card: Denies: chest pain Resp: Denies: dyspnea GI: Denies: abdominal pain : Denies: flank pain Musc: Reports: extremity pain and joint stiffness Skin/Breast: Denies: rash Neuro: Reports: headache(s) Psych: Reports: anxiety Endo: Denies: polyuria Yon/Lymph: Reports: easy bruising All/Imm: Denies: urticaria Medications/Allergies Home Medications Medication Instructions Recorded Confirmed Last Taken Type alprazolam 0.5 mg tablet 0.5 mg PO DAILY PRN 05/06/20 10/30/21 Unknown History levothyroxine 100 mcg tablet 100 mcg PO DAILY 05/06/20 10/30/21 10/30/21 History (Euthyrox) prednisone 5 mg tablet 5 mg PO DAILY 05/06/20 10/30/21 10/30/21 History Fast Form cock up splint #1 ea 11/03/20 10/30/21 Unknown Rx acetaminophen 325 mg capsule 325 mg PO QID PRN 07/12/21 10/30/21 Unknown History amitriptyline 25 mg tablet 25 mg PO DAILY PRN 07/12/21 10/30/21 Unknown History cyclobenzaprine 5 mg tablet 5 mg PO BID PRN 10/30/21 10/30/21 Unknown History Allergies Allergy/AdvReac Type Severity Reaction Status Date / Time No Known Allergies Allergy Verified 07/12/21 10:07 PFSH Acute PFSH: Medical History (Updated 10/30/21 @ 20:08 by Mattie Ivy MD) Cataract Chronic ITP (idiopathic thrombocytopenia) Hypothyroidism Neuropathy Restless leg syndrome Skin cancer Surgical History No pertinent past surgical history Family History Father No problems noted. Mother Alzheimer's dementia Social History Smoking and tobacco status: never smoked Second hand smoke exposure: No Smoking risk assessment/counseling performed?: No Alcohol intake: current Alcohol intake frequency: holidays/special occasions only Desire information about alcohol rehabilitation?: No Counseling given: No Desire information about substance/drug rehabilitation?: No Counseling given: No Adopted: No Caregiver/support person: No Lives independently: Yes Household members: spouse and family Housing: House Marital status: Highest education level completed: Some College, No Degree service: No Current occupational status: retired History of recent travel: No Sexually active: No Current gender identity: Female Agree to transfusion: Yes Vitals/I&O/Wt Last Vital Signs Temp 98.3 F 10/30/21 17:09 Pulse 93 10/30/21 17:09 Resp 22 H 10/30/21 18:26 BP 165/110 10/30/21 17:09 Pulse Ox 96 10/30/21 17:09 Weight last 48 hrs Weight 74.843 kg Physical Exam Narrative: Pleasant female Laying flat in her bed In distress because of pain Restless leg syndrome Nonfocal neuro exam No active signs of seizure S1, S2 No audible stridor or wheezing Saturating well on room air Abdomen is soft No signs of edema of legs Urinary Catheter Management: Tuttle: Cath Placed During This Visit: yes Urinary Catheter Date of Insertion: 10/30/21 Urinary Catheter Time of Insertion: 18:53 Data : 10/30/21 19:12 10/30/21 18:05 A&P Assessment and plan (1) Closed subcapital fracture of left femur: Status: Acute (2) Chronic ITP (idiopathic thrombocytopenia): Status: Acute (3) No pertinent past surgical history: Status: Acute (4) Hypothyroidism: Status: Acute Plan Left hip fracture after sustaining a fall on the ice Impacted displaced hip N.p.o. after midnight Continue IV fluids Patient does not need preoperative cardiac work-up I will only obtain 12-lead EKG and coagulation profile Increase the dose of steroids as she carries history of ITP, platelets are stable I would like to avoid antihypertensive for now, better pain management will definitely reduce her blood pressure If needed would only recommend amlodipine or metoprolol DVT prophylaxis: SCDs For restless leg syndrome would use Requip N.p.o. after midnight Full code Patient is vaccinated for COVID-19, no active signs of COVID-19 SARS Patient does not carry history of coronary disease however she has history of chronic kidney disease creatinine seems to be around baseline Abnormal UA however not a good sample but only give her 1 dose of ceftriaxone Attestations Medical Necessity Statement*: More than 2 midnights anticipated Time Spent in Patient Care: 35mins Coding Level of Care Code Acute Ultimate Hoops Scoreboard Operator for Chg Fwd Diagnoses Closed subcapital fracture of left femur S72.012A Chronic ITP (idiopathic thrombocytopenia) D69.3 No pertinent past surgical history Z78.9 Hypothyroidism E03.9
[2021-10-30 19:29] LABS: Add Urine Microscopic? YES; Bilirubin Urine Neg (Negative); Blood Urine Neg (Negative); Glucose Urine UA Norm (Normal); Ketones Urine Negative (Negative); Leukocyte Esterase Urine Trace (Negative); Nitrate Urine Negative (Negative); Protein Urine Neg (Negative); Specific Gravity, Urine 1.025 (1.005-1.030); Urine Color Yellow (Yellow); Urobilinogen Urine Norm (Negative); pH Urine 5 (5-7)
[2021-10-30 19:30] LABS: Add Urine Culture? No; Bacteria Urine 4+ /hpf; RBC Urine 0-4 /hpf (0-2); Squamous Epithelial Cell Urine 55-80 /hpf (0-5)
[2021-10-30 19:36] LABS: Basophils % 0.3 %; Eosinophils # 0.1 10^3/uL (0.0-0.8); Eosinophils % 0.4 %; Hemoglobin 13.6 g/dL (11.5-15.3); Lymphocytes # 0.8 10^3/uL (0.8-4.8); Lymphocytes % 7.4 %; Mean Corpuscular Hemoglobin 32.9 pg (28.0-34.0); Mean Corpuscular Volume 96.9 fl (81-99); Mean Platelet Volume 10.4 fL (7.4-10.4); Monocytes # 0.7 10^3/uL (0.2-0.9); Monocytes % 6.1 %; Neutrophils # 9.56 10^3/uL (1.8-7.7); Neutrophils % 85.1 %; Nucleated Red Blood Cells % 0 %; Platelet Count 197 10^3/cmm (130-400); Red Blood Count 4.13 10^6/uL (4.1-5.3); Red Cell Distribution Width 12.3 % (12.1-15.1); White Blood Count 11.2 10^3/uL (4.0-10.0)
[2021-10-30 19:40] LABS: INR 1.02 (0.8-1.2)
[2021-10-30 19:41] LABS: Partial Thromboplastin Time 29.2 SECONDS (23.9-36.7)
[2021-10-30] MEDS: HYDROmorphone 1 mg/mL INJ 1 mL IVP (20:05)
[2021-10-30] MEDS: dextrose 5%-sod chloride 0.45% 1,000 ML 100 ML IV (20:54)
[2021-10-30] MEDS: cefTRIAXone 1,000 MG in sodium chloride 0.9% (plus) 50 ML 100 MG IV (20:55)
[2021-10-30] MEDS: ropinirole 1 mg Tablet PO (20:57)
[2021-10-31] VITALS (29 sets, daily range): BP systolic 121–173; BP diastolic 56–85; PULSE 65–85; RESP 12–20; TEMP 36.7–38.2; O2SAT 93–100
[2021-10-31] MEDS: morphine 4 mg/mL SDV 1 mL IVP ×3 (01:10→10:42)
[2021-10-31] MEDS: ondansetron 2 mg/ML SDV 2 mL 4 MG IVP (01:10)
[2021-10-31 03:34] LABS: Basophils % 0.4 %; Eosinophils % 0.2 %; Hematocrit 37.5 % (37.0-47.0); Hemoglobin 12.8 g/dL (11.5-15.3); Lymphocytes # 0.7 10^3/uL (0.8-4.8); Lymphocytes % 8.8 %; Mean Corpuscular HGB Conc 34.1 g/dL (30.0-36.0); Mean Corpuscular Volume 99.5 fl (81-99); Mean Platelet Volume 10.6 fL (7.4-10.4); Monocytes # 0.7 10^3/uL (0.2-0.9); Monocytes % 8.3 %; Neutrophils # 6.88 10^3/uL (1.8-7.7); Neutrophils % 81.7 %; Nucleated Red Blood Cells % 0 %; Platelet Count 171 10^3/cmm (130-400); Red Blood Count 3.77 10^6/uL (4.1-5.3); Red Cell Distribution Width 12.5 % (12.1-15.1); White Blood Count 8.4 10^3/uL (4.0-10.0)
[2021-10-31 04:01] LABS: Carbon Dioxide 24 mmol/L (22-29); Chloride 105 mmol/L (98-107); Glucose 203 mg/dL (65-115); Sodium 138 mmol/L (136-145)
[2021-10-31 04:27] LABS: Blood Urea Nitrogen 21 mg/dL (8-23); Calcium 8.5 mg/dL (8.5-10.5); Magnesium 1.7 mg/dL (1.7-2.3); Osmolality Calculated 295 mOsm/kg (285-295)
[2021-10-31 04:39] LABS: Anion Gap 14.1 (5-19); Potassium 4.1 mmol/L (3.5-5.1)
[2021-10-31] MEDS: dextrose 5%-sod chloride 0.45% 1,000 ML 100 ML IV (07:39)
--- NOTE | 2021-10-31 09:15 | ANES.PREANE2 ---
Pre-Anesthetic Assessment Height/Weight: Height 1.65 m Weight 79.18 kg Temp Pulse Resp BP Pulse Ox 98.7 F 78 16 147/80 98 10/31/21 07:35 10/31/21 08:16 10/31/21 08:16 10/31/21 07:35 10/31/21 08:16 Preop Diagnosis: Left femoral neck fracture Bipolar Hip Familial anesthetic complications: None Was Beta Jayce taken within 24 hours: N/A Was Clonidine taken within 24 hours: N/A Last intake: > 8 hrs Social No alcohol and No tobacco Exam alert, oriented x 3, clear to auscultation bilaterally and regular rate & rhythm Airway Mallampati: Class II Dentition: full Metabolic Thyroid Disease Chronic ITP Neuropsych Neuropathy Anesthetic Plan ASA status: 3 Anesthesia: General Risk of > 500 ml blood loss (7ml/kg in children): No Medications/Allergies Home Medications Medication Instructions Recorded Confirmed Last Taken Type alprazolam 0.5 mg tablet 0.5 mg PO DAILY PRN 05/06/20 10/30/21 Unknown History levothyroxine 100 mcg tablet 100 mcg PO DAILY 05/06/20 10/30/21 10/30/21 History (Euthyrox) prednisone 5 mg tablet 5 mg PO DAILY 05/06/20 10/30/21 10/30/21 History Fast Form cock up splint #1 ea 11/03/20 10/30/21 Unknown Rx acetaminophen 325 mg capsule 325 mg PO QID PRN 07/12/21 10/30/21 Unknown History amitriptyline 25 mg tablet 25 mg PO DAILY PRN 07/12/21 10/30/21 Unknown History cyclobenzaprine 5 mg tablet 5 mg PO BID PRN 10/30/21 10/30/21 Unknown History Allergies Allergy/AdvReac Type Severity Reaction Status Date / Time No Known Allergies Allergy Verified 07/12/21 10:07 Current Medications Generic Name Dose Route Start Last Admin Trade Name Freq PRN Reason Stop Dose Admin Dextrose/Sodium Chloride 1,000 mls @ 100 mls/hr 10/30/21 19:39 10/31/21 07:43 Dextrose 5%-Sod Chloride 0.45% IV 100 mls/hr .Q10H HANS Infusion Levothyroxine Sodium 100 mcg 10/31/21 09:00 10/31/21 07:43 Levothyroxine 100 Mcg Tablet PO Not Given DAILY HANS Morphine Sulfate 4 mg 10/30/21 19:39 10/31/21 05:11 Morphine 4 Mg/Ml Sdv 1 Ml IVP 4 mg Q4H PRN Administration SEVERE PAIN Ondansetron HCl 4 mg 10/30/21 19:39 10/31/21 01:10 Ondansetron 2 Mg/Ml Sdv 2 Ml IVP 4 mg Q6H PRN Administration NAUSEA AND VOMITING Prednisone 20 mg 10/31/21 09:00 10/31/21 07:44 Prednisone 5 Mg Tablet PO Not Given DAILY HANS Ropinirole HCl 1 mg 10/30/21 20:05 10/30/21 20:57 Ropinirole 1 Mg Tablet PO 1 mg BID PRN Administration restless leg Senna/Docusate Sodium 1 tab 10/31/21 09:00 10/31/21 07:44 Sennosides-Docusate Tablet PO Not Given DAILY HANS PFSH Anesthesia Medical History (Updated 10/30/21 @ 20:08 by Mattie Ivy MD) Cataract Chronic ITP (idiopathic thrombocytopenia) Hypothyroidism Neuropathy Restless leg syndrome Skin cancer Surgical History No pertinent past surgical history Family History Father No problems noted. Mother Alzheimer's dementia Social History Smoking and tobacco status: never smoked Second hand smoke exposure: No Smoking risk assessment/counseling performed?: No Alcohol intake: current Alcohol intake frequency: holidays/special occasions only Desire information about alcohol rehabilitation?: No Counseling given: No Desire information about substance/drug rehabilitation?: No Counseling given: No Adopted: No Caregiver/support person: No Lives independently: Yes Household members: spouse and family Housing: House Marital status: Highest education level completed: Some College, No Degree service: No Current occupational status: retired History of recent travel: No Sexually active: No Current gender identity: Female Agree to transfusion: Yes Data Anesthesia : 10/31/21 02:21 10/31/21 02:21 Short CBC 10/30/21 10/30/21 10/31/21 Range/Units 18:05 19:12 02:21 WBC Cancelled 11.2 H 8.4 Hgb Cancelled 13.6 12.8 Hct Cancelled 40.0 37.5 MCV Cancelled 96.9 99.5 H Plt Count Cancelled 197 171 Neut % (Auto) Cancelled 85.1 81.7 Neut # (Auto) Cancelled 9.56 H 6.88 BMP 10/30/21 10/31/21 18:05 02:21 Sodium 136 138 Potassium 4.2 4.1 Chloride 105 105 Carbon Dioxide 20 L 24 BUN 23 21 Creatinine 1.0 H 0.8 Glucose 134 H 203 H Calcium 9.2 8.5 Liver Function 10/30/21 Range/Units 18:05 Total Bilirubin 0.6 (0.15-1.2) mg/dL AST 30 (0-32) U/L ALT 22 (0-33) U/L Alkaline Phosphatase 92 (35-105) IU/L Albumin 4.3 (3.5-5.2) g/dL Urine 10/30/21 Range/Units 18:40 Urine Color Yellow (Yellow) Urine Appearance Sl cloudy A (CLEAR) Urine pH 5 (5-7) Ur Specific [place] 1.025 (1.005-1.030) Urine Protein Neg (Negative) Urine Glucose (UA) Norm (Normal) Urine Ketones Negative (Negative) Urine Nitrate Negative (Negative) Urine Bilirubin Neg (Negative) Ur Leukocyte Esterase Trace H (Negative) Urine RBC 0-4 H (0-2) /hpf Urine WBC 10-15 H (0-5) /hpf Coags 10/30/21 10/30/21 18:05 19:12 PT Cancelled 13.70 INR Cancelled 1.02 APTT Cancelled 29.2 Cardiac Studies: No Data to Display
--- NOTE | 2021-10-31 10:39 | PM.PN ---
Subjective Subjective: Patient is going for surgical intervention around 1:00 No overnight events Patient is doing better with ropinirole because restless leg improved Pain under control with Dilaudid Vitals/I&O/Wt Last Vital Signs Temp 98.7 F 10/31/21 07:35 Pulse 78 10/31/21 08:16 Resp 16 10/31/21 08:16 BP 147/80 10/31/21 07:35 Pulse Ox 98 10/31/21 08:16 10/30/21 10/31/21 10/31/21 22:59 06:59 14:59 Intake Total 250 / 250 1056.667 / 1056.667 Output Total 450 / 450 Balance -200 / -200 1056.667 / 1056.667 Weight last 48 hrs Weight 79.18 kg Weight 74.843 kg Physical Exam Narrative: Patient was laying supine Tuttle catheter draining concentrated urine No audible stridor or wheezing Saturating well on 2 L nasal cannula S1, S2 Abdomen nondistended No vascular compromise of lower extremities Urinary Catheter Management: Tuttle: Cath Placed During This Visit: yes Reason for Continuing Indwelling Catheter: Perioperative Use in Selected Surgeries Urinary Catheter Date of Insertion: 10/30/21 Urinary Catheter Time of Insertion: 18:53 Data : 10/31/21 02:21 10/31/21 02:21 A&P Assessment and plan (1) Closed subcapital fracture of left femur: Status: Acute (2) Chronic ITP (idiopathic thrombocytopenia): Status: Acute (3) No pertinent past surgical history: Status: Acute (4) Hypothyroidism: Status: Acute (5) Neuropathy: Status: Acute Plan Hip fracture, going for surgical intervention around 1:00 No preoperative cardiac work-up needed Coagulation profile reviewed, Twelve-lead EKG results reviewed No QTC prolongation No fever, she was given ceftriaxone 1 dose yesterday, urine contaminated, not a good urine sample PT/OT evaluation after her intervention ITP without acute thrombocytopenia continue steroids I have excluded the dose of steroids to 20 mg daily In case of any hypotension may benefit from stress dose steroids Blood pressure has been stable Full code N.p.o. Advance diet to regular after the surgery DVT prophylaxis to be started after the surgery Attestations Medical Necessity Statement*: Continue hospitalization Time Spent in Patient Care: 10min Coding Level of Care Code Acute Breaker Oiler for Chg Fwd Diagnoses Closed subcapital fracture of left femur S72.012A Chronic ITP (idiopathic thrombocytopenia) D69.3 No pertinent past surgical history Z78.9 Hypothyroidism E03.9 Neuropathy G62.9
[2021-10-31] MEDS: HYDROmorphone 1 mg/mL INJ 1 mL 0.4 MG IVP (10:45)
[2021-10-31] MEDS: ondansetron 2 mg/ML SDV 2 mL 4 MG (13:45)
[2021-10-31] MEDS: sodium chloride 0.9% 1,000 ML 30 ML (13:45)
--- NOTE | 2021-10-31 14:06 | PM.CONSULT ---
Providers/Reason For Consult Consulting Physician/Specialty*: Rosalio Gutierrez MD; orthopedic surgery Reason for Consult*: Left femoral neck fracture Attending Physician: Mattie Ivy MD Primary Care Provider: Harley Sheppard History of Present Illness History of Present Illness Carmen Duran is a 76 year old female previously fully ambulatory without aids. Apparently she was out with her chickens when she slipped and fell on ice with resulting left hip pain. She was transferred to our emergency room where radiographs revealed a displaced left femoral neck fracture. She was admitted to medicine and has been cleared for surgery. Orthopedics was consulted for management of left hip fracture Medications/Allergies Home Medications Medication Instructions Recorded Confirmed Last Taken Type alprazolam 0.5 mg tablet 0.5 mg PO DAILY PRN 05/06/20 10/30/21 Unknown History levothyroxine 100 mcg tablet 100 mcg PO DAILY 05/06/20 10/30/21 10/30/21 History (Euthyrox) prednisone 5 mg tablet 5 mg PO DAILY 05/06/20 10/30/21 10/30/21 History Fast Form cock up splint #1 ea 11/03/20 10/30/21 Unknown Rx acetaminophen 325 mg capsule 325 mg PO QID PRN 07/12/21 10/30/21 Unknown History amitriptyline 25 mg tablet 25 mg PO DAILY PRN 07/12/21 10/30/21 Unknown History cyclobenzaprine 5 mg tablet 5 mg PO BID PRN 10/30/21 10/30/21 Unknown History Allergies Allergy/AdvReac Type Severity Reaction Status Date / Time No Known Allergies Allergy Verified 07/12/21 10:07 Current Medications Generic Name Dose Route Start Last Admin Trade Name Freq PRN Reason Stop Dose Admin Hydromorphone HCl 0.4 mg 10/30/21 19:39 10/31/21 10:45 Hydromorphone 1 Mg/Ml Inj 1 Ml IVP 0.4 mg Q4H PRN Administration pain Dextrose/Sodium Chloride 1,000 mls @ 100 mls/hr 10/30/21 19:39 10/31/21 07:43 Dextrose 5%-Sod Chloride 0.45% IV 100 mls/hr .Q10H HANS Infusion Levothyroxine Sodium 100 mcg 10/31/21 09:00 10/31/21 07:43 Levothyroxine 100 Mcg Tablet PO Not Given DAILY HANS Morphine Sulfate 4 mg 10/30/21 19:39 10/31/21 10:42 Morphine 4 Mg/Ml Sdv 1 Ml IVP 4 mg Q4H PRN Administration SEVERE PAIN Ondansetron HCl 4 mg 10/30/21 19:39 10/31/21 01:10 Ondansetron 2 Mg/Ml Sdv 2 Ml IVP 4 mg Q6H PRN Administration NAUSEA AND VOMITING Prednisone 20 mg 10/31/21 09:00 10/31/21 07:44 Prednisone 5 Mg Tablet PO Not Given DAILY HANS Ropinirole HCl 1 mg 10/30/21 20:05 10/30/21 20:57 Ropinirole 1 Mg Tablet PO 1 mg BID PRN Administration restless leg Senna/Docusate Sodium 1 tab 10/31/21 09:00 10/31/21 07:44 Sennosides-Docusate Tablet PO Not Given DAILY HANS PFSH Acute PFSH: Medical History (Updated 10/30/21 @ 20:08 by Mattie Ivy MD) Cataract Chronic ITP (idiopathic thrombocytopenia) Hypothyroidism Neuropathy Restless leg syndrome Skin cancer Surgical History No pertinent past surgical history Family History Father No problems noted. Mother Alzheimer's dementia Social History Smoking and tobacco status: never smoked Second hand smoke exposure: No Smoking risk assessment/counseling performed?: No Alcohol intake: current Alcohol intake frequency: holidays/special occasions only Desire information about alcohol rehabilitation?: No Counseling given: No Desire information about substance/drug rehabilitation?: No Counseling given: No Adopted: No Caregiver/support person: No Lives independently: Yes Household members: spouse and family Housing: House Marital status: Highest education level completed: Some College, No Degree service: No Current occupational status: retired History of recent travel: No Sexually active: No Current gender identity: Female Agree to transfusion: Yes Vitals/I&O/Wt Last Vital Signs Temp 98.0 F 10/31/21 13:30 Pulse 72 10/31/21 13:50 Resp 16 10/31/21 13:50 BP 144/56 10/31/21 13:50 Pulse Ox 97 10/31/21 13:50 10/30/21 10/31/21 10/31/21 22:59 06:59 14:59 Intake Total 250 / 250 1056.667 / 1056.667 Output Total 450 / 450 Balance -200 / -200 1056.667 / 1056.667 Weight last 48 hrs Weight 174 lb 9 oz Weight 165 lb Physical Exam Narrative: The patient has shortening and external rotation of the left hip. Severe pain with motion of the left hip. Palpable left dorsalis pedis pulses. Flex and extend left toes. Sensation intact to light touch. No pain with palpation or motion of either upper extremity or right lower extremity Urinary Catheter Management: Tuttle: Cath Placed During This Visit: yes Reason for Continuing Indwelling Catheter: Perioperative Use in Selected Surgeries Urinary Catheter Date of Insertion: 10/30/21 Urinary Catheter Time of Insertion: 18:53 Data : 10/31/21 02:21 10/31/21 02:21 Xray Ortho: My impression: 2 views of the left hip are personally interpreted by me dated 10/30/2021 revealing a displaced fracture of the left femoral neck A&P Assessment and plan (1) Closed subcapital fracture of left femur: I discussed options with the patient and family. I told them possible treatments for displaced femoral neck fracture would include nonoperative treatment, open reduction internal fixation, or hemiarthroplasty. I told them without treatment the patient would experience ongoing of pain that would limit mobility. This would require pain medications and place her at medical risks due to prolonged periods of bed rest. I discussed the possibility of open reduction internal fixation with pins. I warned them that for displaced fractures of the risk of nonunion and malunion is exceptionally high. In addition there is a high likelihood that the blood applied to the femoral head has been disrupted and that even with successful stabilization of the fracture the femoral head will go on to . I finally discussed the possibility of hemiarthroplasty. I think this would give the patient the greatest chance of being immediately mobilized. I discussed risk of a bleeding and a possible need for blood products. I discussed risk of deep venous thromboses and pulmonary emboli and the need for anticoagulation. I discussed the use of the TXA that may be utilized to diminish blood loss. I discussed risk of component failure and loosening that could require revision. I discussed the risk of dislocation and a bipolar arthroplasty which is quite unlikely. After a long discussion of options they agree to hemiarthroplasty of the hip. I told them we will make every effort for the patient to be ultimately discharged home but she may require snf placement. Status: Acute Coding Level of Care Code Acute Automatic Profile Sander Operator for [facility] Marija Diagnoses Closed subcapital fracture of left femur S72.012A
--- NOTE | 2021-10-31 15:47 | PM.OP ---
Operative Report Date of procedure: October 31, 2021 Pre-op diagnosis: Preop Diagnosis Left femoral neck fracture Post-op diagnosis: same Post-op findings: The patient had a posterior angulated fracture of the left femoral neck Procedure done: Left bipolar hip arthroplasty Implants: Deloris Accolade II size 5 femoral stem, 44mm bipolar cup, 28mm head -4mm neck Pathology: none sent Surgeon: Rosalio Gutierrez Anesthesia: General Estimated blood loss (mL): 400 Complications: None Findings: As above Condition: stable Procedure: The patient was taken to the operating room and a spinal anesthesia was provided by the anesthesia service. They were given 2 g of Ancef and 1 g of tranexamic acid and positioned in the lateral position with the hip exposed. A 10 cm long incision was made over the greater trochanter with a scalpel blade. Dissection was carried down through the fascia radha to the greater trochanter. The anterior two thirds of gluteus medius and minimus were elevated off the greater trochanter with electrocautery. The capsule was divided T like fashion. The hip was externally rotated and the neck brought up into the wound. An oscillating saw was really used to resect the neck just above the level of the lesser trochanter. The femoral head was removed and the acetabulumt sized to a 44 mm bipolar head. Sequential reaming and broaching of the canal was accomplished up to a size 5. A size 5 Deloris Accolade 2 stem was press fit into place. A trial reduction with a -4 mm neck provided excellent stability. The final head and neck were placed and the hip reduced. The anterior capsule were reapproximated with 1 Ethibond. The gluteus medius and minimus were repaired through the greater trochanter with 5 Ethibond and reinforced with 1 Ethibond. The fascia radha was closed with 1 Stratafix. The subcutaneous tissues were closed with 2-0 Stratafixl. The skin was closed with a running 4-0 Stratafix. The incision was covered with a Prineo dressing. Sterile Opsitedressings were applied. The patient was placed in abduction pillow and taken recovery room in stable condition. [place] 1) Accolade II stem, size 5 2) 48 bipolar femoral head 3) 28mm/-4 neck length femoral head
--- NOTE | 2021-10-31 15:55 | XRR_ITS ---
PROCEDURE INFORMATION: Exam: XR Left Hip Exam date and time: 10/31/2021 3:55 PM Age: 76 years old Clinical indication: Hip pain; Left hip; Prior surgery; Surgery date: Post-operative (0-2 days); Additional info: Left total hip TECHNIQUE: Imaging protocol: XR Left hip. Views: 1 view hip with pelvis when performed. COMPARISON: CR (PELVIS, ) 10/30/2021 5:38 PM FINDINGS: Bones/joints: Metallic arthroplasty is present in the left hip in good position. No acute fracture. Soft tissues: Surgical soft tissue changes seen in the lateral hip XR/XR hip LT 1V wo/w pel [id number] IMPRESSION: 1. Metallic arthroplasty left hip in good position. 2. Postoperative soft tissue changes left hip 3. Otherwise No acute findings.
--- NOTE | 2021-10-31 16:04 | P.PCN_ITS ---
PACU note Narrative: VSS, Good respiratory effort, report to ORNAMENT STAPLER Exam: awake
--- NOTE | 2021-10-31 16:04 | PM.PACU ---
PACU note Narrative: VSS, Good respiratory effort, report to PROFESSOR OF VIOLIN Exam: awake
[2021-10-31] MEDS: HYDROmorphone 1 mg/mL INJ 1 mL 0.5 MG IVP ×2 (16:15→16:40)
[2021-10-31] MEDS: acetaminophen 500 mg Tablet 1000 MG PO (17:47)
[2021-10-31] MEDS: morphine 4 mg/mL SDV 1 mL 2 MG IVP ×4 (17:47→23:36)
[2021-10-31] MEDS: sodium chloride 0.9% 1,000 ML 100 ML IV (17:48)
[2021-10-31] MEDS: CELEcoxib 200 mg Capsule PO (17:48)
[2021-10-31] MEDS: HYDROcodone-acetaminophen 5-325 mg Tablet 1 TAB PO (20:29)
[2021-11-01] VITALS (10 sets, daily range): BP systolic 95–133; BP diastolic 58–77; PULSE 55–86; RESP 14–20; TEMP 36.8; O2SAT 93–99
[2021-11-01] MEDS: acetaminophen 500 mg Tablet 1000 MG PO ×2 (01:18→08:30)
[2021-11-01] MEDS: morphine 4 mg/mL SDV 1 mL 2 MG IVP ×2 (03:53→11:27)
[2021-11-01] MEDS: sodium chloride 0.9% 1,000 ML 100 ML IV (03:54)
[2021-11-01 04:37] LABS: Basophils % 0.2 %; Hematocrit 33.8 % (37.0-47.0); Hemoglobin 11.3 g/dL (11.5-15.3); Lymphocytes # 0.4 10^3/uL (0.8-4.8); Lymphocytes % 4.6 %; Mean Corpuscular HGB Conc 33.4 g/dL (30.0-36.0); Mean Corpuscular Hemoglobin 33.6 pg (28.0-34.0); Mean Corpuscular Volume 100.6 fl (81-99); Mean Platelet Volume 11.7 fL (7.4-10.4); Monocytes # 0.5 10^3/uL (0.2-0.9); Monocytes % 5.5 %; Neutrophils # 8.56 10^3/uL (1.8-7.7); Neutrophils % 89.2 %; Nucleated Red Blood Cells % 0 %; Platelet Count 122 10^3/cmm (130-400); Red Blood Count 3.36 10^6/uL (4.1-5.3); Red Cell Distribution Width 12.1 % (12.1-15.1); White Blood Count 9.6 10^3/uL (4.0-10.0)
[2021-11-01 05:20] LABS: Slide Review Slide Review Perform
[2021-11-01] MEDS: CELEcoxib 200 mg Capsule PO ×2 (05:20→17:33)
[2021-11-01] MEDS: HYDROcodone-acetaminophen 5-325 mg Tablet 1 TAB PO (06:14)
[2021-11-01 07:06] LABS: Anion Gap 14.4 (5-19); Blood Urea Nitrogen 15 mg/dL (8-23); Carbon Dioxide 22 mmol/L (22-29); Chloride 107 mmol/L (98-107); Glucose 141 mg/dL (65-115); Magnesium 1.7 mg/dL (1.7-2.3); Osmolality Calculated 291 mOsm/kg (285-295); Potassium 4.4 mmol/L (3.5-5.1); Sodium 139 mmol/L (136-145)
[2021-11-01] MEDS: levothyroxine 100 mcg Tablet PO (08:34)
--- NOTE | 2021-11-01 08:42 | PC.NURSE ---
Patient states she cannot take aspirin due to kidney disease. Doctors have told her not to take it.
--- NOTE | 2021-11-01 12:47 | P.PN_ITS ---
Subjective Subjective: It has been difficult to work with PT because of her myoclonus and restless leg She is requesting rehab which is definitely what she requires at this point as is not able to take care of her at home manager urgent care updated Vitals/I&O/Wt Last Vital Signs Temp 98.3 F 11/01/21 07:25 Pulse 86 11/01/21 11:51 Resp 18 11/01/21 11:51 BP 95/58 11/01/21 11:51 Pulse Ox 97 11/01/21 11:51 10/31/21 11/01/21 11/01/21 22:59 06:59 14:59 Intake Total 3053.333 / 4110.000 1000 / 5110.000 360 / 360 Output Total 700 / 700 1100 / 1800 Balance 2353.333 / 3410.000 -100 / 3310.000 360 / 360 Weight last 48 hrs Weight 79.18 kg Weight 74.843 kg Physical Exam Narrative: Patient was sitting in a chair No active myoclonus was seizure-like activity Nonfocal neuro exam Anxious appearing Saturating well on room air No signs of edema or vascular compromise of legs S1, S2 Abdomen soft nontender EOMI, PERRLA Urinary Catheter Management: Tuttle: Cath Placed During This Visit: yes Reason for Continuing Indwelling Catheter: Not indwelling catheter Urinary Catheter Date of Insertion: 10/30/21 Urinary Catheter Time of Insertion: 18:53 Data : 11/01/21 03:10 11/01/21 06:19 A&P Assessment and plan (1) Closed subcapital fracture of left femur: Status: Acute (2) Chronic ITP (idiopathic thrombocytopenia): Status: Acute (3) Hypothyroidism: Status: Acute (4) Neuropathy: Status: Acute Plan Hip fracture status post intervention, postop day 1 To work with PT today Patient has been weaned off to room air Soft blood pressure, will give a small bolus 400 mL estimated blood loss during surgery, hemoglobin 11.3 Repeat H&H in the evening manager urgent care updated regarding snf/rehab placement DVT prophylaxis on board Myoclonus, restless legs currently on ropinirole, I will discontinue Reglan No signs of UTI For anti-inflammatory pain management Celebrex has been given Full code Regular diet Attestations Medical Necessity Statement*: Continue hospitalization Time Spent in Patient Care: 20min Coding Level of Care Code Acute Sap Solution Manager Consultant for Daryng Fwd Diagnoses Closed subcapital fracture of left femur S72.012A Chronic ITP (idiopathic thrombocytopenia) D69.3 Hypothyroidism E03.9 Neuropathy G62.9
[2021-11-01] MEDS: lactated ringers 500 ML 999 ML IV (13:53)
[2021-11-01 16:58] LABS: Hematocrit 30.5 % (37.0-47.0); Hemoglobin 10.6 g/dL (11.5-15.3)
[2021-11-01] MEDS: gabapentin 100 mg Capsule PO (17:33)
--- NOTE | 2021-11-01 17:51 | PM.PN ---
Subjective Subjective: Patient mated to chair today. Slow progress with ambulation. Vitals/I&O/Wt Last Vital Signs Temp 98.3 F 11/01/21 15:28 Pulse 75 11/01/21 15:28 Resp 18 11/01/21 15:28 BP 118/67 11/01/21 15:28 Pulse Ox 96 11/01/21 15:28 11/01/21 11/01/21 11/01/21 06:59 14:59 22:59 Intake Total 1060 / 5170.000 360 / 360 Output Total 1100 / 1800 750 / 750 Balance -40 / 3370.000 360 / 360 -750 / -390 Weight last 48 hrs Weight 174 lb 9 oz Physical Exam Narrative: Left hip dressing clean and dry. Minimal swelling left thigh. Strong left dorsalis pedis pulse. Moves left toes and ankles. Sensation intact to light touch. Urinary Catheter Management: Tuttle: Cath Placed During This Visit: yes, but has since been removed by the nurse Reason for Continuing Indwelling Catheter: Other Urinary Catheter Date of Insertion: 10/30/21 Urinary Catheter Time of Insertion: 18:53 Date Urinary Catheter Removed: 11/01/21 Time Urinary Catheter Discontinued: 17:30 Data : 11/01/21 16:44 11/01/21 06:19 A&P Assessment and plan (1) Status post left hip replacement: Patient with slow progress with therapy. Will likely need intermediate. Status: Acute (2) Closed subcapital fracture of left femur: Status: Resolved Attestations Medical Necessity Statement*: As per medicine Coding Level of Care Code Acute Senior Manufacturing Technician for Shey Dutton Diagnoses Status post left hip replacement Z96.642 Closed subcapital fracture of left femur S72.012A
[2021-11-02] VITALS (8 sets, daily range): BP systolic 127–174; BP diastolic 68–93; PULSE 67–86; RESP 16–18; TEMP 36.7–37.1; O2SAT 90–97
[2021-11-02] MEDS: acetaminophen 500 mg Tablet 1000 MG PO ×3 (00:42→17:03)
[2021-11-02 02:44] LABS: Basophils % 0.3 %; Eosinophils # 0.3 10^3/uL (0.0-0.8); Eosinophils % 2.9 %; Hematocrit 31.2 % (37.0-47.0); Hemoglobin 10.6 g/dL (11.5-15.3); Lymphocytes # 1.4 10^3/uL (0.8-4.8); Lymphocytes % 14.6 %; Mean Corpuscular Hemoglobin 33.4 pg (28.0-34.0); Mean Corpuscular Volume 98.4 fl (81-99); Mean Platelet Volume 10.7 fL (7.4-10.4); Monocytes # 0.9 10^3/uL (0.2-0.9); Monocytes % 9.9 %; Neutrophils # 6.71 10^3/uL (1.8-7.7); Neutrophils % 71.6 %; Nucleated Red Blood Cells % 0 %; Platelet Count 120 10^3/cmm (130-400); Red Blood Count 3.17 10^6/uL (4.1-5.3); Red Cell Distribution Width 12.2 % (12.1-15.1); White Blood Count 9.4 10^3/uL (4.0-10.0)
[2021-11-02 03:03] LABS: Blood Urea Nitrogen 20 mg/dL (8-23); Calcium 8.1 mg/dL (8.5-10.5); Carbon Dioxide 23 mmol/L (22-29); Chloride 108 mmol/L (98-107); Glucose 114 mg/dL (65-115); Osmolality Calculated 293 mOsm/kg (285-295); Sodium 140 mmol/L (136-145)
[2021-11-02] MEDS: HYDROcodone-acetaminophen 5-325 mg Tablet 1 TAB PO ×2 (05:08→10:47)
[2021-11-02] MEDS: CELEcoxib 200 mg Capsule PO ×2 (05:08→17:03)
--- NOTE | 2021-11-02 05:14 | PC.NURSE ---
PT removed herself from the bedpan and threw it in the floor, pt was placed on the bedpan and was checked on approx. 5 mins later. pt never turned on her call light, indicating that she was finished prior to the nurse walked back in to check on pt
[2021-11-02] MEDS: gabapentin 100 mg Capsule PO ×2 (08:05→17:03)
[2021-11-02] MEDS: levothyroxine 100 mcg Tablet PO (08:05)
[2021-11-02] MEDS: aspirin 325 mg EC Tablet PO (08:05)
--- NOTE | 2021-11-02 09:07 | PC.SOCIAL ---
IMM update IMM updated with patient. Verbalized an understanding. Copy Pg 2 provided. Initialled, dated, timed, and placed in chart.
--- NOTE | 2021-11-02 11:20 | PM.PN ---
Subjective Subjective: Patient had a lot of concerns today She was upset about the hospital food There were no silverware with the breakfast Then she is stating that her pain is 3 out of 10 and she would like it to be better controlled Overall she is not liking the food at the hospital And she is very agitated because her call light was not answered last night These concerns were conveyed and discussed during our MDR, I did acknowledge all of these concerns and assured the patient that she is heard and I will talk to the day RN, charge nurse is aware She worked with PT today walked about 8 feet Restless legs are slightly better Vitals/I&O/Wt Last Vital Signs Temp 98.3 F 11/02/21 07:26 Pulse 77 11/02/21 08:15 Resp 16 11/02/21 08:15 BP 129/68 11/02/21 07:26 Pulse Ox 95 11/02/21 08:15 11/01/21 11/02/21 11/02/21 22:59 06:59 14:59 Intake Total 2040 / 2400 1240 / 1240 Output Total 750 / 750 650 / 1400 Balance 1290 / 1650 -650 / 1000 1240 / 1240 Physical Exam Narrative: Patient was working with physical therapy in the morning Walked 8 feet Still complaining of pain and restless leg Pain is 3/10 no vascular compromise of legs EOMI, PERRLA Nonfocal neuro exam General on room air S1, S2 Bilateral breath sound without adventitious rhonchi or crackles Urinary Catheter Management: Tuttle: Cath Placed During This Visit: yes, but has since been removed by the nurse Reason for Continuing Indwelling Catheter: Other Urinary Catheter Date of Insertion: 10/30/21 Urinary Catheter Time of Insertion: 18:53 Date Urinary Catheter Removed: 11/01/21 Time Urinary Catheter Discontinued: 17:30 Data : 11/02/21 02:26 11/02/21 02:26 A&P Assessment and plan (1) Status post left hip replacement: Status: Acute (2) Closed subcapital fracture of left femur: Status: Resolved (3) Chronic ITP (idiopathic thrombocytopenia): Status: Acute (4) Hypothyroidism: Status: Acute (5) Neuropathy: Status: Acute (6) Restless leg syndrome: Status: Acute Plan Hip fracture status post intervention Patient is working with PT, walked 8 feet today Wants her pain to be better controlled,- will escalate her opioids Added bowel regimen for constipation Her concerns were addressed, charge nurse is aware To continue work with PT senior software manager is working on her case to get [facility] a [facility] Hemoglobin 10.6, platelet 120, decrease her prednisone down to baseline 5 mg DVT prophylaxis high-dose aspirin continue celecoxib Continue ropinirole for restless leg syndrome Full code Regular diet senior software manager working to get accepted to a detention for rehab Attestations Medical Necessity Statement*: Continue hospitalization Time Spent in Patient Care: 20mins Coding Level of Care Code Acute Automotive Starter Repairer for Daryng Fwd Diagnoses Status post left hip replacement Z96.642 Closed subcapital fracture of left femur S72.012A Chronic ITP (idiopathic thrombocytopenia) D69.3 Hypothyroidism E03.9 Neuropathy G62.9 Restless leg syndrome G25.81
[2021-11-02] MEDS: predniSONE 5 mg Tablet PO (13:16)
[2021-11-02] MEDS: sennosides-docusate Tablet 2 TAB PO ×2 (13:16→17:03)
--- NOTE | 2021-11-02 17:50 | P.PN_ITS ---
Subjective Subjective: Pain better tonight. Slow progress with therapy Vitals/I&O/Wt Last Vital Signs Temp 98.3 F 11/02/21 15:16 Pulse 67 11/02/21 15:16 Resp 18 11/02/21 15:16 BP 128/72 11/02/21 15:16 Pulse Ox 97 11/02/21 15:16 11/02/21 11/02/21 11/02/21 06:59 14:59 22:59 Intake Total 1480 / 1480 Output Total 650 / 1400 Balance -650 / 1000 1480 / 1480 Physical Exam Narrative: Left hip dressings clean and dry. Expecxted swelling left thigh Urinary Catheter Management: Tuttle: Cath Placed During This Visit: yes, but has since been removed by the nurse Reason for Continuing Indwelling Catheter: Other Urinary Catheter Date of Insertion: 10/30/21 Urinary Catheter Time of Insertion: 18:53 Date Urinary Catheter Removed: 11/01/21 Time Urinary Catheter Discontinued: 17:30 Data : 11/02/21 02:26 11/02/21 02:26 A&P Assessment and plan (1) Closed subcapital fracture of left femur: Status: Resolved (2) Status post left hip replacement: Slow prgress with therapy. Aniticpate SNF tomorrow. No acute ortho issues. Status: Acute Attestations Medical Necessity Statement*: OK for SNF per ortho Coding Level of Care Code Acute Full Stack Php Developer for Shey Fwearlene Diagnoses Status post left hip replacement Z96.642 Closed subcapital fracture of left femur S72.012A
[2021-11-02] MEDS: ropinirole 0.25 mg Tablet 0.5 MG PO (20:26)
[2021-11-02] MEDS: oxyCODONE 5 mg IR Tab/Cap PO (20:28)
[2021-11-03] VITALS (9 sets, daily range): BP systolic 108–145; BP diastolic 63–84; PULSE 61–84; RESP 14–18; TEMP 36.4–37.7; O2SAT 90–98
[2021-11-03] MEDS: acetaminophen 500 mg Tablet 1000 MG PO ×3 (00:51→17:20)
[2021-11-03] MEDS: oxyCODONE 5 mg IR Tab/Cap PO ×3 (03:58→21:14)
[2021-11-03] MEDS: CELEcoxib 200 mg Capsule PO ×2 (05:52→17:20)
[2021-11-03] MEDS: levothyroxine 100 mcg Tablet PO (07:43)
[2021-11-03] MEDS: aspirin 325 mg EC Tablet PO (07:43)
[2021-11-03] MEDS: predniSONE 5 mg Tablet PO (07:43)
[2021-11-03] MEDS: sennosides-docusate Tablet 2 TAB PO (07:43)
[2021-11-03] MEDS: gabapentin 100 mg Capsule PO ×2 (07:43→17:20)
--- NOTE | 2021-11-03 13:10 | P.PN_ITS ---
Subjective Subjective: No overnight events, participating with PT, Her concerns were addressed yesterday, she is in good mood today, no active complaints Happy with the progress Awaiting long-term placement Vitals/I&O/Wt Last Vital Signs Temp 98.3 F 11/03/21 11:32 Pulse 61 11/03/21 11:32 Resp 18 11/03/21 11:32 BP 145/63 11/03/21 11:32 Pulse Ox 98 11/03/21 11:32 11/02/21 11/03/21 11/03/21 22:59 06:59 14:59 Intake Total 240 / 1720 600 / 2320 240 / 240 Output Total 300 / 300 Balance 240 / 1720 300 / 2020 240 / 240 Physical Exam Narrative: Patient saturating well on room air She did participate with PT with the help of a walker S1, S2 Nonfocal neuro exam No active resting tremors or signs of myoclonus Nonfocal neuro exam Nontender soft abdomen No audible stridor or wheezing Urinary Catheter Management: Tuttle: Cath Placed During This Visit: yes, but has since been removed by the nurse Reason for Continuing Indwelling Catheter: Other Urinary Catheter Date of Insertion: 10/30/21 Urinary Catheter Time of Insertion: 18:53 Date Urinary Catheter Removed: 11/01/21 Time Urinary Catheter Discontinued: 17:30 Data : 11/02/21 02:26 11/02/21 02:26 A&P Assessment and plan (1) Restless leg syndrome: Status: Acute (2) Status post left hip replacement: Status: Acute (3) Closed subcapital fracture of left femur: Status: Resolved (4) Chronic ITP (idiopathic thrombocytopenia): Status: Acute (5) No pertinent past surgical history: Status: Acute (6) Hypothyroidism: Status: Acute (7) Neuropathy: Status: Acute Plan Hip fracture status post intervention No postoperative complication Restless legs: Improvement of symptoms noted with ropinirole Continue opioids and celecoxib Levothyroxine for hypothyroidism I have resumed her prednisone 5 mg daily for her ITP Currently on regular diet DVT prophylaxis: High-dose aspirin No need of labs Awaiting long-term placement Attestations Medical Necessity Statement*: Awaiting long-term placement Time Spent in Patient Care: 20min Coding Level of Care Code Acute Sewing Machine Adjuster for Shey Dutton Diagnoses Restless leg syndrome G25.81 Status post left hip replacement Z96.642 Closed subcapital fracture of left femur S72.012A Chronic ITP (idiopathic thrombocytopenia) D69.3 No pertinent past surgical history Z78.9 Hypothyroidism E03.9 Neuropathy G62.9
--- NOTE | 2021-11-03 14:13 | PM.PN ---
Subjective Subjective: Still complaining of left hip pain although able to ambulate short distances. Vitals/I&O/Wt Last Vital Signs Temp 98.3 F 11/03/21 11:32 Pulse 61 11/03/21 11:32 Resp 18 11/03/21 11:32 BP 145/63 11/03/21 11:32 Pulse Ox 98 11/03/21 11:32 11/02/21 11/03/21 11/03/21 22:59 06:59 14:59 Intake Total 240 / 1720 600 / 2320 480 / 480 Output Total 300 / 300 Balance 240 / 1720 300 / 2020 480 / 480 Physical Exam Narrative: Left hip incision clean and dry. Urinary Catheter Management: Tuttle: Cath Placed During This Visit: yes, but has since been removed by the nurse Reason for Continuing Indwelling Catheter: Other Urinary Catheter Date of Insertion: 10/30/21 Urinary Catheter Time of Insertion: 18:53 Date Urinary Catheter Removed: 11/01/21 Time Urinary Catheter Discontinued: 17:30 Data : 11/02/21 02:26 11/02/21 02:26 A&P Assessment and plan (1) Status post left hip replacement: Carmen and wishes jail transfer. Okay to transfer to jail when bed available Status: Acute Attestations Medical Necessity Statement*: Okay for discharge to Ortho. Coding Level of Care Code Acute Torch Straightener And Heater for Shey Dutton Diagnoses Status post left hip replacement Z96.642
[2021-11-03 19:17] LABS: Adenovirus Not Detected (NOT DETECT); Chlamydia Pneumoniae Not Detected (NOT DETECT); Coronavirus 229E,HKU1,NL63,OC4 Not Detected (NOT DETECT); Human Metapneumovirus Not Detected (NOT DETECT); Human Rhinovirus/Enterovirus Not Detected (NOT DETECT); Influenza A Not Detected (NOT DETECT); Influenza A H1 Not Detected (NOT DETECT); Influenza A H1-2009 Not Detected (NOT DETECT); Influenza A H3 Not Detected (NOT DETECT); Influenza B Not Detected (NOT DETECT); Mycoplasma Pneumoniae Not Detected (NOT DETECT); Parainfluenza Virus Type 1 Not Detected (NOT DETECT); Parainfluenza Virus Type 2 Not Detected (NOT DETECT); Parainfluenza Virus Type 3 Not Detected (NOT DETECT); Parainfluenza Virus Type 4 Not Detected (NOT DETECT); Respiratory Syncytial Virus A Not Detected (NOT DETECT); Respiratory Syncytial Virus B Not Detected (NOT DETECT); SARS-COV-2 Not Detected (NOT DETECT)
[2021-11-04] VITALS: BP 118/59; PULSE 60; RESP 17; O2SAT 97
[2021-11-04] MEDS: acetaminophen 500 mg Tablet 1000 MG PO ×2 (02:32→08:49)
[2021-11-04 03:14] VITALS: RESP 16
[2021-11-04] MEDS: oxyCODONE 5 mg IR Tab/Cap PO ×2 (03:14→08:48)
[2021-11-04 03:25] VITALS: BP 134/77; PULSE 76; RESP 17; TEMP 36.9; O2SAT 97
[2021-11-04] MEDS: CELEcoxib 200 mg Capsule PO (05:33)
[2021-11-04 07:22] VITALS: PULSE 79; RESP 18; O2SAT 98
[2021-11-04 08:00] VITALS: BP 110/73; PULSE 76; RESP 13; TEMP 36.9; O2SAT 98
--- NOTE | 2021-11-04 08:03 | P.DS_ITS ---
Discharge Providers Date of Admission: 10/30/21 18:09 Date of Discharge: November 04, 2021 Attending Provider at Admission: Mattie Ivy MD Attending Provider at Discharge: Mattie Ivy MD Primary Care Provider: Harley Sheppard Diagnoses at Discharge Discharge Diagnosis (1) Restless leg syndrome: Status: Acute (2) Status post left hip replacement: Status: Acute (3) Closed subcapital fracture of left femur: Status: Resolved (4) Chronic ITP (idiopathic thrombocytopenia): Status: Acute (5) No pertinent past surgical history: Status: Acute (6) Hypothyroidism: Status: Acute (7) Neuropathy: Status: Acute Reason for Visit Reason for Visit: LEFT HIP PAIN S/P FALL Hospital Course Hospital Course 76-year-old female who sustained hip fracture after falling on icy pavement. 10/31 went for left hip bipolar arthroplasty. Patient does have restless leg syndrome for which she requires gabapentin and ropinirole. This was added during this hospitalization. It significantly improved her symptoms. She was able to participate with physical therapy with the help of opioids and ropinirole. Her requires a lot of help at home hence decision was made to discharge her to rehab for short-term and then outpatient orthopedic follow- up. Her pain has been ranging between 3-5, she will get DVT prophylaxis with aspirin full dose along senna S bowel regimen +opioids. She remained hemodynamically stable. No postoperative complications. I do not think she has myoclonus. Physical Exam Narrative: Pleasant elderly female Was able to walk with help of walker Saturating well on room air Abdomen soft S1, S2 Nonfocal neuro exam Euvolemic Urinary Catheter Management: Tuttle: Cath Placed During This Visit: yes, but has since been removed by the nurse Reason for Continuing Indwelling Catheter: Other Urinary Catheter Date of Insertion: 10/30/21 Urinary Catheter Time of Insertion: 18:53 Date Urinary Catheter Removed: 11/01/21 Time Urinary Catheter Discontinued: 17:30 Discharge Data Studies Completed and Pending Completed Studies During Hospitalization Category Date Time Status XR chest 1V portable [id number] Routine Exams 10/30/21 17:42 Completed XR hip LT 1V wo/[place] [id number] Routine Exams 10/31/21 15:55 Completed XR hip LT 2-3V wo/w pel* [id number] Stat Exams 10/30/21 17:06 Completed Radiology Impressions Hip/Pelvis X-Ray 10/30/21 17:06 IMPRESSION: Subcapital impacted displaced hip fracture. Chest X-Ray 10/30/21 17:42 IMPRESSION: No acute findings. Hip X-Ray 10/31/21 15:55 IMPRESSION: 1. Metallic arthroplasty left hip in good position. 2. Postoperative soft tissue changes left hip 3. Otherwise No acute findings. Laboratory Results WBC 9.4 10^3/uL (4.0-10.0) 11/02/21 02:26 Corrected WBC Cancelled 10/30/21 18:05 RBC 3.17 10^6/uL (4.1-5.3) L 11/02/21 02:26 Hgb 10.6 g/dL (11.5-15.3) L 11/02/21 02:26 Hct 31.2 % (37.0-47.0) L 11/02/21 02:26 MCV 98.4 fl (81-99) 11/02/21 02:26 MCH 33.4 pg (28.0-34.0) 11/02/21 02:26 MCHC 34.0 g/dL (30.0-36.0) 11/02/21 02:26 RDW 12.2 % (12.1-15.1) 11/02/21 02:26 Plt Count 120 10^3/cmm (130-400) L 11/02/21 02:26 MPV 10.7 fL (7.4-10.4) H 11/02/21 02:26 Gran % Cancelled 10/30/21 18:05 Neut % (Auto) 71.6 % 11/02/21 02:26 Lymph % (Auto) 14.6 % 11/02/21 02:26 [place] % (Auto) 9.9 % 11/02/21 02:26 Eos % (Auto) 2.9 % 11/02/21 02:26 Baso % (Auto) 0.3 % 11/02/21 02:26 Neut # (Auto) 6.71 10^3/uL (1.8-7.7) 11/02/21 02:26 Lymph # (Auto) 1.4 10^3/uL (0.8-4.8) 11/02/21 02:26 [place] # (Auto) 0.9 10^3/uL (0.2-0.9) 11/02/21 02:26 Eos # (Auto) 0.3 10^3/uL (0.0-0.8) 11/02/21 02:26 Baso # (Auto) 0.0 10^3/uL (0.0-0.1) 11/02/21 02:26 Absolute Gran (auto) Cancelled 10/30/21 18:05 Nucleated RBC % (auto) 0 % 11/02/21 02:26 Nucleated RBCs # 0.0 /100WBC 11/02/21 02:26 PT 13.70 SECONDS (12.1-14.9) 10/30/21 19:12 INR 1.02 (0.8-1.2) 10/30/21 19:12 APTT 29.2 SECONDS (23.9-36.7) 10/30/21 19:12 Sodium 140 mmol/L (136-145) 11/02/21 02:26 Potassium 4.0 mmol/L (3.5-5.1) 11/02/21 02:26 Chloride 108 mmol/L (98-107) H 11/02/21 02:26 Carbon Dioxide 23 mmol/L (22-29) 11/02/21 02:26 Anion Gap 13.0 (5-19) 11/02/21 02:26 BUN 20 mg/dL (8-23) 11/02/21 02:26 Creatinine 0.8 mg/dL (0.5-0.9) 11/02/21 02:26 GFR Calculation Not Reportable 11/02/21 02:26 Glucose 114 mg/dL (65-115) 11/02/21 02:26 Calculated Osmolality 293 mOsm/kg (285-295) 11/02/21 02:26 Calcium 8.1 mg/dL (8.5-10.5) L 11/02/21 02:26 Magnesium 1.7 mg/dL (1.7-2.3) 11/01/21 06:19 Total Bilirubin 0.6 mg/dL (0.15-1.2) 10/30/21 18:05 AST 30 U/L (0-32) 10/30/21 18:05 ALT 22 U/L (0-33) 10/30/21 18:05 Alkaline Phosphatase 92 IU/L (35-105) 10/30/21 18:05 Total Protein 7.2 g/dL (6.6-8.7) 10/30/21 18:05 Albumin 4.3 g/dL (3.5-5.2) 10/30/21 18:05 Globulin 2.9 g/dL (1.3-4.6) 10/30/21 18:05 Urine Color Yellow (Yellow) 10/30/21 18:40 Urine Appearance Sl cloudy (CLEAR) A 10/30/21 18:40 Urine pH 5 (5-7) 10/30/21 18:40 Ur Specific [place] 1.025 (1.005-1.030) 10/30/21 18:40 Urine Protein Neg (Negative) 10/30/21 18:40 Urine Glucose (UA) Norm (Normal) 10/30/21 18:40 Urine Ketones Negative (Negative) 10/30/21 18:40 Urine Blood Neg (Negative) 10/30/21 18:40 Urine Nitrate Negative (Negative) 10/30/21 18:40 Urine Bilirubin Neg (Negative) 10/30/21 18:40 Urine Urobilinogen Norm mg/dL (Negative) 10/30/21 18:40 Ur Leukocyte Esterase Trace (Negative) H 10/30/21 18:40 Urine RBC 0-4 /hpf (0-2) H 10/30/21 18:40 Urine WBC 10-15 /hpf (0-5) H 10/30/21 18:40 Ur Squamous Epith Cells 55-80 /hpf (0-5) H 10/30/21 18:40 Amorphous Sediment Not Reportable 10/30/21 18:40 Urine Bacteria 4+ /hpf (NONE) H 10/30/21 18:40 Coronavirus 229E (PCR) Not detected (NOT DETECT) 11/03/21 16:36 SARS-CoV-2 (PCR) Not detected (NOT DETECT) 11/03/21 16:36 Vitals Last Vital Signs Temp 98.4 F 11/04/21 03:25 Pulse 76 11/04/21 03:25 Resp 17 11/04/21 03:25 BP 134/77 11/04/21 03:25 Pulse Ox 97 11/04/21 03:25 Discharge Plan Discharge Patient Disposition: Xfer SNF Condition: Stable Prescriptions: New celecoxib 200 mg Capsule 200 mg PO Q12H Qty: 20 0RF Stool Softener-Laxative 8.6-50 mg Tablet 2 tab PO BID Qty: 30 0RF aspirin 325 mg Tablet,Delayed Release (Dr/Ec) 325 mg PO DAILY Qty: 14 0RF ropinirole 0.25 mg Tablet 0.5 mg PO TID PRN (Reason: myoclonus) Qty: 30 0RF gabapentin 100 mg Capsule 100 mg PO BID Qty: 20 0RF oxycodone 5 mg Tablet 5 mg PO Q6H PRN (Reason: Moderate Pain) Qty: 20 0RF Continued prednisone 5 mg tablet 5 mg PO DAILY 0RF levothyroxine [Euthyrox] 100 mcg tablet 100 mcg PO DAILY 0RF alprazolam 0.5 mg tablet 0.5 mg PO DAILY PRN (Reason: Anxiety) 0RF (DME) Fast Form cock up splint See Rx Instructions .ROUTE .MEDSUPPLY Qty: 1 0RF Rx Instructions: As directed acetaminophen 325 mg capsule 325 mg PO QID PRN (Reason: Pain) 0RF amitriptyline 25 mg tablet 25 mg PO DAILY PRN (Reason: Anxiety) 0RF cyclobenzaprine 5 mg tablet 5 mg PO BID PRN (Reason: Muscle Pain) 0RF Discharge Orders: Discharge Order (Routine); Ordered 11/04/21 Ordered By: Mattie Ivy Other Ambulatory Orders: DME: Walker (Order) Location: None Selected Ordered By: Rosalio Gutierrez Referrals: [facility] [Outside] Harley Sheppard [Primary Care Provider] - Rosalio Gutierrez MD [Physician] - 12/08/21 9:30 am Discharge Diet: Cardiac Discharge Activity: Limit activity as instructed Patient Instructions: Oxycodone/Acetaminophen (By mouth), Aspirin (By mouth), Laxative, Stool Softeners (By mouth), Gabapentin (By mouth), Ropinirole (By mouth), Celecoxib (By mouth), Restless Legs Syndrome (ED), Thrombocytopenia (DC), Hip Fracture (ED), Total Hip Replacement (DC) Activity Restrictions/Additional Instructions: May bear weight as tolerated to left hip Okay to shower. Change dressing as necessary for drainage/staining Discharge Attestations Time Spent in Discharge Care*: less than 30 min Quality Metrics Clinical Quality Measures [ No reported AMI, CVA or VTE this stay] Coding Level of Care Code Acute Chg FW DC note Diagnoses Restless leg syndrome G25.81 Status post left hip replacement Z96.642 Closed subcapital fracture of left femur S72.012A Chronic ITP (idiopathic thrombocytopenia) D69.3 No pertinent past surgical history Z78.9 Hypothyroidism E03.9 Neuropathy G62.9
[2021-11-04] MEDS: aspirin 325 mg EC Tablet PO (08:48)
[2021-11-04] MEDS: gabapentin 100 mg Capsule PO (08:48)
[2021-11-04] MEDS: levothyroxine 100 mcg Tablet PO (08:49)
[2021-11-04] MEDS: sennosides-docusate Tablet 2 TAB PO (08:49)
[2021-11-04] MEDS: predniSONE 5 mg Tablet PO (08:49)
--- NOTE | 2021-11-04 13:57 | PC.SOCIAL ---
IMM update IMM updated with patient. Verbalized an understanding. Copy Pg 2 provided. Initialled, dated, timed, and placed in chart.
== END 2021-11-04 13:03 | disposition skilled nursing facility (03) | DRG 522 ==
LOC: ER 18:18 → MEDSURG 18:33
PROVIDERS: Orthopaedic Surgery; Admitting Provider Internal Medicine; Emergency Provider Family Medicine; PCP Family Medicine; Visit Provider Internal Medicine
PROC: 0SRS0JA Replacement of Left Hip Joint, Femoral Surface with Synthetic Substitute, Uncemented, Open Approach (ICD-10-PCS; CPT 27125; principal; 2021-10-31 13:00)
DX: S72.012A Unspecified intracapsular fracture of left femur, initial encounter for closed fracture (principal); D69.3 Immune thrombocytopenic purpura; W00.0XXA Fall on same level due to ice and snow, initial encounter; E03.9 Hypothyroidism, unspecified; Z85.828 Personal history of other malignant neoplasm of skin; G62.9 Polyneuropathy, unspecified; G25.81 Restless legs syndrome; N18.30 Chronic kidney disease, stage 3 unspecified
CPT/HCPCS: 36415; 51702; 71045; 73501; 73502; 80048; 80053; 81001; 83735; 85014; 85018; 85025; 85610; 85730; 87635; 93005; 96365; 96366; 96367; 96375; 96376; 97110; 97116; 97161; 97167; 97530; 97535; 99285; C1776; J0330; J0690; J0696; J1100; J1170; J2060; J2270; J2405; J2704; J3010; J3490; J7030; J7512; J7799

== ENCOUNTER → 2021-12-14 10:56 | Outpatient (BNVA) | payer MEDICARE, OTHER, SELFPAY | PROVIDERS: PCP Family Medicine; Visit Provider Orthopaedic Surgery | DX: Z96.642 Presence of left artificial hip joint (principal) | CPT/HCPCS: 73502 ==

== ENCOUNTER 2021-12-22 06:00 | Outpatient (RCR) | payer MEDICARE, OTHER, SELFPAY | END 2022-01-01 23:59 | disposition home or self-care (01) | LOC: SPT 06:00 | PROVIDERS: PCP Family Medicine; Referring Provider Orthopaedic Surgery; Visit Provider Orthopaedic Surgery | DX: Z47.1 Aftercare following joint replacement surgery (principal); Z96.642 Presence of left artificial hip joint | CPT/HCPCS: 97110; 97161 ==

== ENCOUNTER 2022-01-02 06:00 | Outpatient (RCR) | payer MEDICARE, OTHER, SELFPAY | END 2022-02-01 23:59 | disposition home or self-care (01) | LOC: SPT 06:00 | PROVIDERS: PCP Family Medicine; Referring Provider Orthopaedic Surgery; Visit Provider Orthopaedic Surgery | DX: Z47.1 Aftercare following joint replacement surgery (principal); Z96.642 Presence of left artificial hip joint | CPT/HCPCS: 97110 ==

== ENCOUNTER → 2022-01-11 10:05 | Outpatient (BNVA) | payer MEDICARE, OTHER, SELFPAY | PROVIDERS: PCP Family Medicine; Visit Provider Orthopaedic Surgery | DX: Z96.642 Presence of left artificial hip joint (principal) | CPT/HCPCS: 73502 ==

== ENCOUNTER 2022-05-16 10:58 | Outpatient (CLI) | payer MEDICARE, OTHER, SELFPAY ==
--- NOTE | 2022-05-16 11:10 | MM_ITS ---
WS: [id number] BILATERAL SCREENING DIGITAL TOMOSYNTHESIS MAMMOGRAM WITH CAD HISTORY: SCREENING COMPARISON: 2020 and 01/21/2020 Bilateral CC and MLO views with tomosynthesis and synthetic mammography submitted. Computer aided det ection analyzed. Breast composition: The breasts are heterogeneously dense, which may obscure small masses. No suspici ous masses, microcalcifications or architectural distortion. MM/[place] [id number] IMPRESSION: BI-RADS: 1-Negative FOLLOW UP: 1 Year Follow-up
== END 2022-05-16 10:59 | disposition home or self-care (01) ==
PROVIDERS: PCP Family Medicine; Visit Provider Nurse Practitioner Family
DX: Z12.31 Encounter for screening mammogram for malignant neoplasm of breast (principal)
CPT/HCPCS: 77063; 77067

== ENCOUNTER 2022-10-17 13:05 | Outpatient (CLI) | payer MEDICARE, OTHER, SELFPAY ==
--- NOTE | 2022-10-17 13:18 | USCV_ITS ---
Carmen Joy Age: 77 Gender: F : 1945 Exam Date: 10/17/2022 13:33 Ordering Phys: Aneta Angeles Technologist: Kimberly Bosch Exam Location: [facility] [place] Indication: ELEVATED BRAIN PEPTIDE AFIB BP: / HR: 54 Rhythm: Sinus Technical Quality: Adequate MEASUREMENTS (Male / Female) Normal Values 2D ECHO LV Diastolic Diameter PLAX 2.7 cm 4.2 - 5.9 / 3.9 - 5.3 cm LV Systolic Diameter PLAX 3.1 cm LV Chamber Size 4.0 cm IVS Diastolic Thickness 4.0 cm 0.6 - 1.0 / 0.6 - 0.9 cm IVS Systolic Thickness 1.2 cm LVPW Diastolic Thickness 1.3 cm 0.6 - 1.0 / 0.6 - 0.9 cm LVPW Systolic Thickness 1.4 cm RV Chamber Size 3.7 cm LVOT Diameter 2.0 cm LV Ejection Fraction 2D Teich 45.3 % LV Ejection Fraction MOD 2C 77.4 % LV Ejection Fraction 2C AL 79.5 % LA Diameter 3.5 cm LA Width 3.5 cm LA Height 3.9 cm RA Width 2.9 cm RA Height 4.5 cm Aorta at Sinotubular Diameter 2.9 cm IVC Diameter 2.0 cm M-MODE Aortic Annulus Diameter 3.7 cm LA Ao Ratio MM 1.0 DOPPLER AV Peak Velocity 122.0 cm/s LVOT Peak Velocity 86.0 cm/s AV Area Cont Eq vti 2.3 cm squared AV Area Cont Eq pk 2.2 cm squared MV Area PHT 2.6 cm squared Mitral E to A Ratio 1.1 MV E' Velocity 42.5 cm/s Mitral E to MV E' Ratio 6.2 Mitral E to LV E' Lateral Ratio 5.6 Mitral E to LV E' Septal Ratio 6.8 TR Peak Velocity 207.5 cm/s TR Peak Gradient 17.2 mmHg TR Mean Velocity 154.9 cm/s TR Mean Gradient 10.9 mmHg TR Velocity Time Integral 51.2 cm TV Peak E Velocity 88.0 cm/s Right Atrial Pressure 3.0 mmHg Pulmonary Artery Systolic Pressu 20.2 mmHg PV Peak Velocity 94.0 cm/s RV Acceleration Time 0.2 s RV Ejection Time 0.4 s RV AcT/ET 0.5 FINDINGS Left Ventricle Left ventricle is normal in size. LV systolic function is normal with EF 55 to 60%. No regional wall motion abnormalities seen. Right Ventricle Normal in size and function Right Atrium Normal in size Left Atrium Normal in size Mitral Valve Mild mitral annular calcification is seen. No significant stenosis or regurgitation. Aortic Valve Structurally normal aortic valve. No significant aortic stenosis. Mild aortic regurgitation is seen. Tricuspid Valve Mild tricuspid regurgitation. Pulmonary artery systolic pressure is normal. Pulmonic Valve Not well-visualized. Trace pulmonic regurgitation. Pericardium Normal Aorta Normal in size IVC Appears to be normal CONCLUSIONS LV systolic function is normal with EF 55 to 60%. Mild mitral annular calcification is seen. Mild aortic regurgitation is noted Mild tricuspid regurgitation Trace pulmonic regurgitation No comparison studies are available Krzysztof Ramirez MD (Electronically Signed) Final Date: 28 October 2022 21:38 S
== END 2022-10-17 13:06 | disposition home or self-care (01) ==
LOC: RAD 13:08
PROVIDERS: PCP Family Medicine; Visit Provider Nurse Practitioner Family
DX: R79.89 Other specified abnormal findings of blood chemistry (principal); I48.91 Unspecified atrial fibrillation; I08.3 Combined rheumatic disorders of mitral, aortic and tricuspid valves
CPT/HCPCS: 93306

== ENCOUNTER → 2022-12-28 13:21 | Outpatient (BNVA) | payer MEDICARE, OTHER, SELFPAY | PROVIDERS: PCP Family Medicine; Visit Provider Internal Medicine | DX: R07.9 Chest pain, unspecified (principal); R00.2 Palpitations; R06.09 Other forms of dyspnea | CPT/HCPCS: 93005; 99204 ==

== ENCOUNTER 2023-01-31 11:36 | Outpatient (CLI) | payer MEDICARE, OTHER, SELFPAY ==
--- NOTE | 2023-01-31 | ECG_ITS ---
[facility] Test Date: 2023-01-31 Pat Name: Carmen Duran Department: Room: Gender: Female Efficiency Manager: : [id number] Requested By: Krzysztof Ramirez Order Number: [id number] Boyce MD: Krzysztof Ramirez M.D. Interpretive Statements NAME OF STUDY: TREADMILL STRESS TEST INDICATION: [Chest Pain, ] EXERCISE DATA: The patient was exercised by David protocol. Baseline heart rate was 63 beats per minute. Baseline blood pressure was 149/53 millimeters of mercury. Target heart rate was 122 beats per minute. Maximum heart rate achieved was 130 which was 106% of the target heart rate. Maximum blood pressure was 176/71 millimeters of mercury. Total exercise time was 4-minute 36 seconds. Maximum METs achieved was 7. The reason for ending the test was maximal effort achieved. The patient complained of shortness of breath during the stress test, which then resolved at the end of the test. ELECTROCARDIOGRAM: BASELINE: Showed sinus rhythm, normal axis, no significant ST-T changes at the baseline noted. [] EXERCISE: At the peak exercise level, [] No significant ST-T changes suggestive of ischemia noted. [] RECOVERY: During the recovery period, heart rate dropped appropriately. No significant ST-T changes in the recovery suggestive of ischemia noted. [] CONCLUSION: 1. Exercise capacity fair. 2. Heart rate response was appropriate 3. Blood pressure response was appropriate. 4. Symptoms not suggestive of ischemia. 5. Stress test is negative for ischemia. Electronically Signed On 02-16-2023 9:50:08 CDT by Krzysztof Ramirez M.D. [email or web address]
[2023-01-31 11:45] VITALS: BMI 28.7
[2023-01-31 12:11] VITALS: BP 144/71; PULSE 72
== END 2023-01-31 11:37 | disposition home or self-care (01) ==
LOC: CDL 11:37
PROVIDERS: PCP Family Medicine; Visit Provider Internal Medicine
DX: R07.9 Chest pain, unspecified (principal)
CPT/HCPCS: 93017

== ENCOUNTER → 2023-05-01 15:13 | Outpatient (BNVA) | payer MEDICARE, OTHER, SELFPAY | PROVIDERS: PCP Family Medicine; Visit Provider Internal Medicine | DX: R07.9 Chest pain, unspecified (principal); R06.09 Other forms of dyspnea | CPT/HCPCS: 99214 ==

== ENCOUNTER 2023-05-22 10:25 | Outpatient (RCR) | payer MEDICARE, OTHER, SELFPAY | END 2023-06-03 23:59 | disposition home or self-care (01) | LOC: SPT 10:25 | PROVIDERS: PCP Family Medicine; Visit Provider Otolaryngology | DX: R42 Dizziness and giddiness (principal) | CPT/HCPCS: 95992; 97112; 97161 ==